=== PATIENT | female | born 1960 | race Caucasian/White ===

== ENCOUNTER → 2017-01-04 | Outpatient (CLI) | payer MEDICAID ==
[~2017-01-04] MED LIST: BPR150TCR; BUPR300T; CALC1TAB88; LEVO750T6; LRT10T
== END ==
LOC: CARD 12:56
PROVIDERS: ATTEND Family Medicine
DX: R60.0 Localized edema (principal); I10 Essential (primary) hypertension; S81.801D Unspecified open wound, right lower leg, subsequent encounter

== ENCOUNTER → 2018-10-18 | Outpatient (CLI) | payer MEDICAID ==
--- NOTE | 2018-10-21 08:26 | Diagnostic Imaging Report ---
Indication: Fall, pain to the right toes. Time of exam: 11:55 AM Multiple views right toes were obtained. There is amputation of the fifth toe with the exception of the most proximal aspect of the proximal phalanx. Resection margin is smooth. First through fourth toes appear to be intact. No fractures are seen. Visualized distal metatarsals are intact. Impression: Amputation of the fifth toe. No acute bony abnormality is detected. Dictated by: Dictated on workstation # [id number]
--- NOTE | 2018-10-21 11:38 | Diagnostic Imaging Report ---
EXAMINATION: Right foot, three views; right ankle, three views. INDICATION: Right foot and ankle pain after fall. COMPARISON: Right foot radiograph performed on 12/03/2007. FINDINGS: There is generalized osteopenia of the visualized bones, limiting detailed evaluation. No fracture or acute osseous abnormality is identified. Bony alignment is maintained. Intact ankle mortise, including the medial and lateral clear space. Interval partial amputation of the fifth digit to the level of the metatarsal. A small well-corticated ossific density adjacent to the fifth metatarsal head likely reflects small residual portion of the proximal phalanx. Well-corticated ossific densities adjacent to the distal tibia and fibula likely represent accessory ossicles or sequela of prior trauma. There is diffuse edema in the soft tissues of the ankle and foot. IMPRESSION: 1. No acute fracture or dislocation. 2. Interval partial amputation of the fifth digit. Dictated by: Dictated on workstation # [id number]
== END ==
LOC: RAD 10:44
PROVIDERS: ATTEND Family Medicine
DX: M79.89 Other specified soft tissue disorders (principal); W19.XXXA Unspecified fall, initial encounter; Z89.421 Acquired absence of other right toe(s)
CPT/HCPCS: 73610; 73630; 73660

== ENCOUNTER 2019-12-16 00:23 | Emergency (ER) | payer MEDICAID ==
[~2019-12-16] VITALS: Ht 157 cm; Wt 105.0 kg
--- OUTSIDE RECORDS SUMMARY | 2019-12-16 00:28 | XMS REPORT | Continuity of Care Document ---
Author Organization Unknown Address Unknown Phone Unavailable Allergies Active Description Code Type Severity Reaction Onset Reported/Identified Relationship to Patient Clinical Status Yes PENICILLIN G POTASSIUM PENICILLIN G POTASSI MILD Yes PENICILLIN G POTASSIUM MILD DERMATOLOGICAL - LAMONT Yes PENICILLIN G POTASSIUM MILD MILD Yes VANCOMYCIN MODERATE DERMATOLOGICAL - HIV Yes VANCOMYCIN MODERATE MODERATE Yes Penicillins [id number] Drug Aller gy Mild N/A 10/03/2008 Medications Medication Packaging Start Date St op Date Route Dosage Sig SMZ/TMP DS TAB (SEPTRA DS) (Bactrim DS) TAB 07/08/2016 07/08/2016 ONCE&1324 POLY/BACI/NEOM OINT OINT 0 (NEOSPORIN) tess 07/09/2016 07/09/2016 ONCE&1226 Normal SALINE 0.9 % (NS 100cc) (plain bag) ml 02/17/2018 02/23/2018 Daily&1700 CLOTRIMAZOLE CREAM CRM 1 % (LOTRIMIN CREAM ) tess 02/18/2018 02/24/2018 BID&0800,2000 POLY/BACI/NEOM OINT OINT (NEOSPORIN) tess 02/18/2018 02/24/2018 BID&0800,2000 CALMOSEPTINE OINT TUBE (RISAMINE OINT) tess 02/18/2018 02/25/2018 PRN Q2H ACETAMINOPHEN ORAL TABLET 325mg(Tylenol) MG 02/18/2018 03/20/2018 PRN Q6H Sore Throat (phenol) spray (Chloraseptic) SPRAY 02/18/2018 02/28/2018 PRN Q6H CHLORASEPTIC/HALLS PRIYA/DROP (SORETHROAT PRIYA/COUGH DROP) LOZENGE 02/18/2018 02/28/2018 PRN Q2H DIPHENHYDRAMINE CAP 25 MG (BENADRYL) MG 02/18/2018 02/25/2018 PRN Q6H ONDANSETRON 8 MG Oral DissolveTab (ZOFRAN) MG 02/18/2018 03/20/2018 PRN Q6H DIPHENHYDRAMINE CAP 25 MG (BENADRYL) MG 02/18/2018 02/18/2018 PRN ONCE LOPERAMIDE CAP 2 MG (IMMODIUM) MG 02/18/2018 02/18/2018 PRN ONCE HYDROCORTISONE CREAM CRM 1 % (HYTONE CREAM ) tess 02/18/2018 02/18/2018 PRN ONCE Sore Throat (phenol) spray (Chloraseptic) SPRAY 02/18/2018 02/18/2018 PRN ONCE CHLORASEPTIC/HALLS PRIYA/DROP (SORETHROAT PRIYA/COUGH DROP) LOZENGE 02/18/2018 02/18/2018 PRN ONCE GUAIFENESIN - DM LIQ (ROBITUSSIN DM) ml 02/18/2018 02/18/2018 PRN ONCE NAPROXEN TAB 500 MG (NAPROSYN) MG 02/18/2018 02/18/2018 PRN ONCE Nystatin top powder (Mycostatin) APPLICATION 02/18/2018 02/18/2018 ONCE&0900 CYCLOBENZAPRINE TAB 10 MG (FLEXERIL) MG 02/18/2018 02/18/2018 PRN ONCE DICYCLOMINE TAB 20 MG (BENTYL) MG 02/18/2018 02/18/2018 ONCE&0800,1400,2000 MILK OF BERE LIQ ml 02/18/2018 02/18/2018 PRN ONCE ACETAMINOPHEN ORAL TABLET 325mg(Tylenol) MG 02/18/2018 02/18/2018 PRN ONCE LOPERAMIDE CAP 2 MG (IMMODIUM) MG 02/18/2018 02/18/2018 PRN ONCE POLY/BACI/NEOMY 1APP OINT (NEOSPORIN) tess 02/18/2018 02/18/2018 PRN ONCE CALCIUM CARBONATE TAB 500 MG (TUMS) MG 02/18/2018 02/18/2018 PRN ONCE ONDANSETRON 8 MG Oral DissolveTab (ZOFRAN) MG 02/18/2018 02/18/2018 PRN ONCE BENZONATATE CAP 100 MG (TESSALON) MG 02/18/2018 02/18/2018 PRN ONCE LEVOFLOXACIN PREMIX IV BAG I NJ 500 MG/100CC (LEVAQUIN IV PREMIX 100CC BAG) MG 02/18/2018 02/25/20 18 Daily&13 00 BENZONATATE CAP 100 MG (TESSALON) MG 02/18/2018 02/25/2018 PRN Q8H CYCLOBENZAPRINE TAB 10 MG (FLEXERIL) MG 02/18/2018 02/25/2018 PRN Q8H HYDROCORTISONE CREAM CRM 1 % (HYTONE CREAM ) tess 02/18/2018 02/28/2018 PRN Q8H CALCIUM CARBONATE TAB 500 MG (TUMS) MG 02/18/2018 02/25/2018 PRN Q4H DICYCLOMINE TAB 20 MG (BENTYL) MG 02/18/2018 02/25/2018 TID&0800,1400,2000 NORMAL SALINE 250CC IV BAG I NJ 0.9 % (NS 250CC IV BAG) ml 02/18/2018 02/25/2018 Q12H&0200,1400 GUAIFENESIN - DM LIQ (ROBITUSSIN DM) ml 02/18/2018 02/25/2018 PRN Q4H DIPHENHYDRAMINE CAP 50 MG (BENADRYL) MG 02/18/2018 02/18/2018 PRN ONCE NORMAL SALINE 250CC IV BAG I NJ 0.9 % (NS 250CC IV BAG) ml 02/18/2018 02/25/2018 Q12H&0400,1600 Normal SALINE 0.9 % (NS 100cc) (plain bag) ml 02/18/2018 02/24/2018 Daily&1700 NAPROXEN TAB 500 MG (NAPROSYN) MG 02/18/2018 02/25/2018 PRN Q12H POLY/BACI/NEOMY 1APP OINT (NEOSPORIN) tess 02/18/2018 02/25/2018 PRN Q12H LEVOFLOXACIN PREMIX IV BAG I NJ 500 MG/100CC (LEVAQUIN IV PREMIX 100CC BAG) MG 02/18/2018 02/25/20 18 Daily&18 00 MILK OF MAGNESIA LIQ ml 02/18/2018 03/20/2018 PRN Q12H CLOTRIMAZOLE CREAM CRM 1 % (LOTRIMIN CREAM ) tess 02/18/2018 02/25/2018 BID&0800,2000 BUPROPION SR TAB 150 MG (WELLBUTRIN SR) MG 02/19/2018 02/25/2018 QAM&0800 LORATADINE TAB 10 MG (CLARITIN) MG 02/19/2018 02/25/2018 Daily&0900 TRIAMTERENE/HCTZ 37.5/25 TAB 37.5 MG-25MG (MAXZIDE-25) cap 02/19/2018 02/25/2018 Daily&0900 LOPERAMIDE CAP 2 MG (IMMODIUM) MG 02/19/2018 02/26/2018 PRN Daily Nystatin top powder (Mycostatin) APPLICATION 02/19/2018 03/04/2018 Daily&0900 PANTOPRAZOLE TAB 40 MG (PROTONIX) MG 02/19/2018 02/25/2018 Daily&0900 VITAMIN D-3 TAB 1000 UNITS (VITAMIN D-3) UNITS 02/19/2018 02/25/2018 Daily&0900 CALCIUM 600MG W VIT D TAB 60 0 MG (OSCAL/W VIT D) MG 02/19/2018 02/25/2018 Daily&0900 IBUPROFEN TAB 800 MG (MOTRIN) MG 02/20/2018 02/27/2018 PRN Q8H LEVOFLOXACIN TAB 500 MG (LEVAQUIN) MG 02/20/2018 02/20/2018 ONCE&1834 Doxycycline hyclate 100mg capsule (Vibramy hussein) MG 02/21/2018 03/02/2018 BID&0800,2000 LEVOFLOXACIN TAB 500 MG (LEVAQUIN) MG 02/21/2018 03/02/2018 Daily&0900 Doxycycline hyclate 100mg capsule (Vibramy hussein) MG 03/03/2018 03/12/2018 BID&0800,2000 Problems Date Dx Coded Attending Type Code Diagnosis Diagnosed By 10/01/2015 SURESH BARON MD Ot B35 .3 [facility] PEDIS 10/01/2015 SURESH BARON MD Ot E16 .1 OTHER HYPOGLYCEMIA 10/01/2015 SURESH BARON MD Ot 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 10/01/2015 SURESH BARON MD Ot L97.511 NON-PRS CHRONIC ULCER OTH PRT R FOOT SOOD 10/07/2015 SURESH BARON MD Ot B35 .3 TINEA PEDIS 10/07/2015 SURESH BARON MD Ot E16 .1 OTHER HYPOGLYCEMIA 10/07/2015 SURESH BARON MD Ot 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 10/07/2015 SURESH BARON MD Ot L97.511 NON-PRS CHRONIC ULCER OTH PRT R FOOT SOOD 04/19/2016 DEVONTE MCCABE, TAE L Ot L81.9 DISORDER OF PIGMENTATION, UNSPECIFIED 04/19/2016 DEVONTE MCCABE, TAE L Ot R20.9 UNSPECIFIED DISTURBANCES OF SKIN SENSATI 04/20/2016 DEVONTE MCCABE, TAE L Ot L81.9 DISORDER OF PIGMENTATION, UNSPECIFIED 04/20/2016 DEVONTE MCCABE, TAE L Ot R20.9 UNSPECIFIED DISTURBANCES OF SKIN SENSATI 05/03/2016 DEVONTE MCCABE, TAE L Ot L81.9 DISORDER OF PIGMENTATION, UNSPECIFIED 05/03/2016 DEVONTE MCCABE, TAE L Ot R20.9 UNSPECIFIED DISTURBANCES OF SKIN SENSATI 07/08/2016 Tyesha Jefferson W 780.60 FEVER, UNSPECIFIED 07/08/2016 Tyesha Jefferson W R50.9 FEVER, UNSPECIFIED 07/08/2016 Devyn Galvez W I87.2 VENOUS INSUFFICIENCY (CHRONIC) (PERIPHERAL) 07/08/2016 Devyn Galvez W I87.2 VENOUS INSUFFICIENCY (CHRONIC) (PERIPHERAL) 07/08/2016 BrownDevyn W I87.2 VENOUS INSUFFICIENCY (CHRONIC) (PERIPHERAL) 07/08/2016 BrownDevyn W I87.2 VENOUS INSUFFICIENCY (CHRONIC) (PERIPHERAL) 07/08/2016 BrownDevyn W I87.2 VENOUS INSUFFICIENCY (CHRONIC) (PERIPHERAL) 07/08/2016 BrownDevyn W I87.2 VENOUS INSUFFICIENCY (CHRONIC) (PERIPHERAL) 07/08/2016 Devyn Galvez W I87.2 VENOUS INSUFFICIENCY (CHRONIC) (PERIPHERAL) 07/08/2016 BrownDevyn W I87.2 VENOUS INSUFFICIENCY (CHRONIC) (PERIPHERAL) 07/08/2016 BrownDevyn W I87.2 VENOUS INSUFFICIENCY (CHRONIC) (PERIPHERAL) 07/08/2016 BrownDevyn W I87.2 VENOUS INSUFFICIENCY (CHRONIC) (PERIPHERAL) 07/08/2016 BrownDevyn W I87.2 VENOUS INSUFFICIENCY (CHRONIC) (PERIPHERAL) 07/08/2016 BrownDevyn W I87.2 VENOUS INSUFFICIENCY (CHRONIC) (PERIPHERAL) 07/08/2016 Tyesha Jefferson W 459.81 VENOUS (PERIPHERAL) INSUFFICIENCY, UNSPECIFIED 07/08/2016 Tyesha Jefferson W 682.3 CELLULITIS AND ABSCESS OF UPPER ARM AND FOREARM 07/08/2016 Tyesha Jefferson A 682.6 CELLULITIS AND ABSCESS OF LEG, EXCEPT FOOT 07/08/2016 Tyesha Jefferson Mackenzie I87.2 VENOUS INSUFFICIENCY (CHRONIC) (PERIPHERAL) 07/08/2016 Tyesha Jeffreson A L03.115 CELLULITIS OF RIGHT LOWER LIMB 07/08/2016 Tyesha Jefferson W L03.119 CELLULITIS OF UNSPECIFIED PART OF LIMB 07/09/2016 Tyesha Jefferson 682.6 CELLULITIS AND ABSCESS OF LEG, EXCEPT FOOT 07/09/2016 Tyesha Jefferson A 893.1 OPEN WOUND OF TOE(S), COMPLICATED 07/09/2016 Tyesha Jefferson W L03.115 CELLULITIS OF RIGHT LOWER LIMB 07/09/2016 Tyesha Jefferson Luiza S91.114 A LAC W/O FB OF RIGHT LESSER TOE(S) W/O DAMAGE TO NAIL, INIT 01/02/2017 TAE WHITNEY MD Ot L81.9 DISORDER OF PIGMENTATION, UNSPECIFIED 01/02/2017 TAE WHITNEY MD Ot R20.9 UNSPECIFIED DISTURBANCES OF SKIN SENSATI 01/04/2017 TAE WHITNEY MD Ot L81.9 DISORDER OF PIGMENTATION, UNSPECIFIED 01/04/2017 TAE WHITNEY MD Ot R20.9 UNSPECIFIED DISTURBANCES OF SKIN SENSATI 05/02/2017 A 789.00 ABD OMINAL PAIN, UNSPECIFIED SITE 05/02/2017 A R10.10 UPP ER ABDOMINAL PAIN, UNSPECIFIED 05/03/2017 TAE WHITNEY A 789.00 ABDOMINAL PAIN, UNSPECIFIED SITE 05/03/2017 TAE WHITNEY A R10.10 UPPER ABDOMINAL PAIN, UNSPECIFIED 05/03/2017 TAE WHITNEY A 789.00 ABDOMINAL PAIN, UNSPECIFIED SITE 05/03/2017 TAE WHITNEY R10.10 UPPER ABDOMINAL PAIN, UNSPECIFIED 05/03/2017 TAE WHITNEY A 789.00 ABDOMINAL PAIN, UNSPECIFIED SITE 05/03/2017 TAE WHITNEY R10.10 UPPER ABDOMINAL PAIN, UNSPECIFIED 01/17/2018 TAE WHITNEY MD Ot K82.9 DISEASE OF GALLBLADDER, UNSPECIFIED 01/17/2018 WHITNEY MD, TAE L Ot R10.84 GENERALIZED ABDOMINAL PAIN 01/17/2018 DEVONTE MCCABE, TAE L Ot R14.0 ABDOMINAL DISTENSION (GASEOUS) 01/17/2018 DEVONTE MCCABE, TAE L Ot R19.7 DIARRHEA, UNSPECIFIED 01/17/2018 DEVONTE MCCABE, TAE L Ot Z12.31 ENCNTR SCREEN MAMMOGRAM FOR MALIGNANT NE 01/30/2018 DEVONTE MCCABE, TAE L Ot K82.9 DISEASE OF GALLBLADDER, UNSPECIFIED 01/30/2018 DEVONTE MCCABE, TAE L Ot R10.84 GENERALIZED ABDOMINAL PAIN 01/30/2018 DEVONTE MCCABE, TAE L Ot R14.0 ABDOMINAL DISTENSION (GASEOUS) 01/30/2018 DEVONTE MCCABE, TAE L Ot R19.7 DIARRHEA, UNSPECIFIED 01/30/2018 LORENA WHITNEY MDHEL L Ot Z12.31 ENCNTR SCREEN MAMMOGRAM FOR MALIGNANT NE 02/18/2018 TAE HWITNEY A 682.6 CELLULITIS AND ABSCESS OF LEG, EXCEPT FOOT 02/18/2018 TAE WHITNEY A L03.119 CELLULITIS OF UNSPECIFIED PART OF LIMB 02/18/2018 TAE WHITNEY A 682.6 CELLULITIS AND ABSCESS OF LEG, EXCEPT FOOT 02/18/2018 TAE WHITNEY W 707.23 PRESSURE ULCER STAGE III 02/18/2018 TAE WHITNEY A L03.119 CELLULITIS OF UNSPECIFIED PART OF LIMB 02/18/2018 TAE WHITNEY W L89.93 PRESSURE ULCER OF UNSPECIFIED SITE, STAGE 3 02/18/2018 TAE WHITNEY W 110.5 DERMATOPHYTOSIS OF THE BODY 02/18/2018 TAE WHITNEY W 457.1 OTHER LYMPHEDEMA 02/18/2018 TAE WHITNEY A 682.6 CELLULITIS AND ABSCESS OF LEG, EXCEPT FOOT 02/18/2018 LORENA WHITNEYHEL W 707.23 PRESSURE ULCER STAGE III 02/18/2018 TAE WHITNEY W B35.4 TINEA CORPORIS 02/18/2018 TAE WHITNEY I89.0 LYMPHEDEMA, NOT ELSEWHERE CLASSIFIED 02/18/2018 TAE WHITNEY A L03.119 CELLULITIS OF UNSPECIFIED PART OF LIMB 02/18/2018 TAE WHITNEY W L89.93 PRESSURE ULCER OF UNSPECIFIED SITE, STAGE 3 02/18/2018 WHITNEY, TAE W 110.5 DERMATOPHYTOSIS OF THE BODY 02/18/2018 WHITNEY TAE W 457.1 OTHER LYMPHEDEMA 02/18/2018 WHITNEY, TAE A 682.6 CELLULITIS AND ABSCESS OF LEG, EXCEPT FOOT 02/18/2018 WHITNEY, TAE W 707.23 PRESSURE ULCER STAGE III 02/18/2018 WHITNEY, TAE W B35.4 TINEA CORPORIS 02/18/2018 WHITNEY, TAE W I89.0 LYMPHEDEMA, NOT ELSEWHERE CLASSIFIED 02/18/2018 WHITNEY, TAE A L03.119 CELLULITIS OF UNSPECIFIED PART OF LIMB 02/18/2018 WHITNEY, TAE W L89.93 PRESSURE ULCER OF UNSPECIFIED SITE, STAGE 3 02/18/2018 WHITNEY, TAE W 110.5 DERMATOPHYTOSIS OF THE BODY 02/18/2018 WHITNEY, TAE W 317 MILD INTELLECTUAL DISABILITIES 02/18/2018 WHITNEY, TAE W 457.1 OTHER LYMPHEDEMA 02/18/2018 WHITNEY TAE A 682.6 CELLULITIS AND ABSCESS OF LEG, EXCEPT FOOT 02/18/2018 WHITNEY, TAE W 707.23 PRESSURE ULCER STAGE III 02/18/2018 WHITNEY, TAE W B35.4 TINEA CORPORIS 02/18/2018 WHITNEY, TAE W F70 MILD INTELLECTUAL DISABILITIES 02/18/2018 WHITNEY TAE W I89.0 LYMPHEDEMA, NOT ELSEWHERE CLASSIFIED 02/18/2018 WHITNEY, TAE A L03.119 CELLULITIS OF UNSPECIFIED PART OF LIMB 02/18/2018 WHITNEY, TAE W L89.93 PRESSURE ULCER OF UNSPECIFIED SITE, STAGE 3 02/18/2018 WHITNEY, TAE W 110.5 DERMATOPHYTOSIS OF THE BODY 02/18/2018 WHITNEY, TAE W 317 02/18/2018 WHITNEY, TAE W 401.9 02/18/2018 WHITNEY, TAE W 457.1 OTHER LYMPHEDEMA 02/18/2018 WHITNEY, TAE A 682.6 CELLULITIS AND ABSCESS OF LEG, EXCEPT FOOT 02/18/2018 WHITNEY, TAE W 707.23 PRESSURE ULCER STAGE III 02/18/2018 WHITNEY, TAE W B35.4 TINEA CORPORIS 02/18/2018 WHITNEY, TAE W F70 MILD INTELLECTUAL DISABILITIES 02/18/2018 LORENA WHITNEYHEL W I10 ESSENTIAL (PRIMARY) HYPERTENSION 02/18/2018 TAE WHITNEY W I89.0 LYMPHEDEMA, NOT ELSEWHERE CLASSIFIED 02/18/2018 DEVONTE TAE A L03.119 CELLULITIS OF UNSPECIFIED PART OF LIMB 02/18/2018 TAE WHITNEY W L89.93 PRESSURE ULCER OF UNSPECIFIED SITE, STAGE 3 02/18/2018 TAE WHITNEY W 110.5 DERMATOPHYTOSIS OF THE BODY 02/18/2018 TAE WHITNEY W 317 02/18/2018 WHITNEYLORENA BERMANHEL W 356.9 02/18/2018 WHITNEYLORENA BERMANHEL W 401.9 02/18/2018 LORENA WHITNEYHEL W 457.1 OTHER LYMPHEDEMA 02/18/2018 LORENA WHITNEYHEL A 682.6 CELLULITIS AND ABSCESS OF LEG, EXCEPT FOOT 02/18/2018 TAE WHITNEY W 707.23 PRESSURE ULCER STAGE III 02/18/2018 TAE WHITNEY W B35.4 TINEA CORPORIS 02/18/2018 TAE WHITNEY W F70 MILD INTELLECTUAL DISABILITIES 02/18/2018 TAE WHITNEY W 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 02/18/2018 DEVONTE TAE W I10 ESSENTIAL (PRIMARY) HYPERTENSION 02/18/2018 TAE WHITNEY W I89.0 LYMPHEDEMA, NOT ELSEWHERE CLASSIFIED 02/18/2018 WHITNEY, TAE A L03.119 CELLULITIS OF UNSPECIFIED PART OF LIMB 02/18/2018 WHITNEY, TAE W L89.93 PRESSURE ULCER OF UNSPECIFIED SITE, STAGE 3 02/18/2018 TAE WHITNEY W 110.5 02/18/2018 TAE WHITNEY W 317 02/18/2018 WHITNEYLORENA BERMANHEL W 356.9 02/18/2018 WHITNEY, TAE W 401.9 02/18/2018 WHITNEYLORENA BERMANHEL W 457.1 OTHER LYMPHEDEMA 02/18/2018 LORENA WHITNEYHEL A 682.6 CELLULITIS AND ABSCESS OF LEG, EXCEPT FOOT 02/18/2018 LORENA WHITNEYHEL W 707.23 PRESSURE ULCER STAGE III 02/18/2018 TAE WHITNEY W B35.4 TINEA CORPORIS 02/18/2018 TAE WHITNEY W F70 MILD INTELLECTUAL DISABILITIES 02/18/2018 LORENA WHITNEYHEL W 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 02/18/2018 WHITNEY, TAE W I10 ESSENTIAL (PRIMARY) HYPERTENSION 02/18/2018 WHITNEY TAE W I89.0 LYMPHEDEMA, NOT ELSEWHERE CLASSIFIED 02/18/2018 TAE WHITNEY A L03.119 CELLULITIS OF UNSPECIFIED PART OF LIMB 02/18/2018 WHITNEY, TAE W L89.93 PRESSURE ULCER OF UNSPECIFIED SITE, STAGE 3 02/21/2018 WHITNEY, TAE W 110.5 02/21/2018 WHITNEY, TAE W 317 02/21/2018 WHITNEY, TAE W 356.9 02/21/2018 WHITNEY, TAE W 357.9 02/21/2018 WHITNEY, TAE W 401.9 02/21/2018 WHITNEY, TAE W 457.1 OTHER LYMPHEDEMA 02/21/2018 LORENA WHITNEYHEL A 682.6 CELLULITIS AND ABSCESS OF LEG, EXCEPT FOOT 02/21/2018 WHITNEY, TAE W 707.05 02/21/2018 WHITNEY, TAE W 707.09 02/21/2018 WHITNEY, TAE W 707.23 PRESSURE ULCER STAGE III 02/21/2018 WHITNEY, TAE W 708.0 02/21/2018 WHITNEY, TAE W 995.29 02/21/2018 WHITNEY, TAE W B35.4 TINEA CORPORIS 02/21/2018 DEVONTE TAE W F70 MILD INTELLECTUAL DISABILITIES 02/21/2018 WHITNEY, TAE W G62.9 POLYNEUROPATHY, UNSPECIFIED 02/21/2018 WHITNEY, TAE W 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 02/21/2018 WHITNEY, TAE W I10 ESSENTIAL (PRIMARY) HYPERTENSION 02/21/2018 WHITNEY, TAE W I89.0 LYMPHEDEMA, NOT ELSEWHERE CLASSIFIED 02/21/2018 DEVONTE TAE A L03.115 CELLULITIS OF RIGHT LOWER LIMB 02/21/2018 WHITNEY, TAE A L03.119 CELLULITIS OF UNSPECIFIED PART OF LIMB 02/21/2018 DEVONTE TAE W L50.0 ALLERGIC URTICARIA 02/21/2018 DEVONTE TAE W L89.313 02/21/2018 WHITNEY, TAE W L89.892 02/21/2018 TAE WHITNEY W L89.93 PRESSURE ULCER OF UNSPECIFIED SITE, STAGE 3 02/21/2018 TAE WHITNEY W T36.8X5 A ADVERSE EFFECT OF OTHER SYSTEMIC ANTIBIOTICS, INIT ENCNTR 02/28/2018 W 110.5 DERM ATOPHYTOSIS OF THE BODY 02/28/2018 A 682.6 CELL ULITIS AND ABSCESS OF LEG, EXCEPT FOOT 02/28/2018 W 707.05 PRE SSURE ULCER, BUTTOCK 02/28/2018 W B35.4 GOLDY A CORPORIS 02/28/2018 A L03.119 CE LLULITIS OF UNSPECIFIED PART OF LIMB 02/28/2018 W L89.3 PRES SURE ULCER OF BUTTOCK 03/12/2018 A 707.22 PRE SSURE ULCER STAGE II 03/12/2018 W 782.3 EDEMA 03/12/2018 A L89.92 PRE SSURE ULCER OF UNSPECIFIED SITE, STAGE 2 03/12/2018 W R60.0 LOCA LIZED EDEMA 03/26/2018 W 707.22 PRE SSURE ULCER STAGE II 03/26/2018 A 782.3 EDEMA 03/26/2018 W L89.92 PRE SSURE ULCER OF UNSPECIFIED SITE, STAGE 2 03/26/2018 A R60.0 LOCA LIZED EDEMA 04/09/2018 W 707.00 PRE SSURE ULCER, UNSPECIFIED SITE 04/09/2018 W 782.3 EDEMA 04/09/2018 W L89.92 PRE SSURE ULCER OF UNSPECIFIED SITE, STAGE 2 04/09/2018 W R60.0 LOCA LIZED EDEMA 04/24/2018 W 707.22 PRE SSURE ULCER STAGE II 04/24/2018 A 782.3 EDEMA 04/24/2018 W L89.92 PRE SSURE ULCER OF UNSPECIFIED SITE, STAGE 2 04/24/2018 A R60.0 LOCA LIZED EDEMA 07/24/2018 W 250.00 FLORIAN BETES MELLITUS WITHOUT MENTION OF COMPLICATION, TYPE II OR UNSPECIFIED TYPE, NOT STATED UNCONTROLLED 07/24/2018 W 401.0 ELMER GNANT ESSENTIAL HYPERTENSION 07/24/2018 W 780.99 OTH ER GENERAL SYMPTOMS 07/24/2018 W E11.9 TYPE 2 DIABETES MELLITUS WITHOUT COMPLICATIONS 07/24/2018 W I10 ESSENT IAL (PRIMARY) HYPERTENSION 08/12/2018 W 682.9 CELL ULITIS AND ABSCESS OF UNSPECIFIED SITES 08/12/2018 W L03.90 TOD LULITIS, UNSPECIFIED 10/15/2018 W 959.7 OTHE R AND UNSPECIFIED INJURY TO KNEE, LEG, ANKLE, AND FOOT 10/15/2018 W E888.9 UNS PECIFIED FALL 10/15/2018 W S99.921 UN SPECIFIED INJURY OF RIGHT FOOT 10/28/2018 W 250.00 FLORIAN BETES MELLITUS WITHOUT MENTION OF COMPLICATION, TYPE II OR UNSPECIFIED TYPE, NOT STATED UNCONTROLLED 10/28/2018 W 401.9 UNSP ECIFIED ESSENTIAL HYPERTENSION 10/28/2018 W 530.81 ESO PHAGEAL REFLUX 10/28/2018 W E11.9 TYPE 2 DIABETES MELLITUS WITHOUT COMPLICATIONS 10/28/2018 W I10 ESSENT IAL (PRIMARY) HYPERTENSION 10/28/2018 W K21.0 TIFFANY RO-ESOPHAGEAL REFLUX DISEASE WITH ESOPHAGITIS 11/03/2018 TAE WHITNEY MD, Ot M79.89 OTHER SPECIFIED SOFT TISSUE DISORDERS 11/03/2018 TAE WHITNEY MD Ot W19.XXXA UNSPECIFIED FALL, INITIAL ENCOUNTER 11/03/2018 TAE WHITNEY MD, Ot Z89.421 ACQUIRED ABSENCE OF OTHER RIGHT TOE(S) 11/13/2018 TAE WHITNEY MD, Ot M79.89 OTHER SPECIFIED SOFT TISSUE DISORDERS 11/13/2018 TAE WHITNEY MD, Ot W19.XXXA UNSPECIFIED FALL, INITIAL ENCOUNTER 11/13/2018 TAE WHITNEY MD, Ot Z89.421 ACQUIRED ABSENCE OF OTHER RIGHT TOE(S) 12/26/2018 W 707.0 PRES SURE ULCER 12/26/2018 W L89.90 PRE SSURE ULCER OF UNSPECIFIED SITE, UNSPECIFIED STAGE 01/29/2019 TAE WHITNEY V70.0 ROUTINE GENERAL MEDICAL EXAMINATION AT A HEALTH CARE FACILITY 01/29/2019 TAE WHITNEY Z00.00 ENCOUNTER FOR GENERAL ADULT MEDICAL EXAMINATION WITHOUT ABNORMAL FINDINGS 01/29/2019 TAE WHITNEY V70.0 ROUTINE GENERAL MEDICAL EXAMINATION AT A HEALTH CARE FACILITY 01/29/2019 TAE WHITNEY Z00.00 ENCOUNTER FOR GENERAL ADULT MEDICAL EXAMINATION WITHOUT ABNORMAL FINDINGS 01/29/2019 TAE WHITNEY V70.0 ROUTINE GENERAL MEDICAL EXAMINATION AT A HEALTH CARE FACILITY 01/29/2019 TAE WHITNEY Z00.00 ENCOUNTER FOR GENERAL ADULT MEDICAL EXAMINATION WITHOUT ABNORMAL FINDINGS 01/29/2019 TAE WHITNEY W 250.00 DIABETES MELLITUS WITHOUT MENTION OF COMPLICATION, TYPE II OR UNSPECIFIED TYPE, NOT STATED UNCONTROLLED 01/29/2019 TAE WHITNEY E11.9 TYPE 2 DIABETES MELLITUS WITHOUT COMPLICATIONS 01/29/2019 TAE WHITNEY V70.0 ROUTINE GENERAL MEDICAL EXAMINATION AT A HEALTH CARE FACILITY 01/29/2019 TAE WHITNEY Z00.00 ENCOUNTER FOR GENERAL ADULT MEDICAL EXAMINATION WITHOUT ABNORMAL FINDINGS 01/29/2019 TAE WHITNEY W 250.00 DIABETES MELLITUS WITHOUT MENTION OF COMPLICATION, TYPE II OR UNSPECIFIED TYPE, NOT STATED UNCONTROLLED 01/29/2019 TAE WHITNEY E11.9 TYPE 2 DIABETES MELLITUS WITHOUT COMPLICATIONS 01/29/2019 TAE WHITNEY V70.0 ROUTINE GENERAL MEDICAL EXAMINATION AT A HEALTH CARE FACILITY 01/29/2019 TAE WHITNEY Z00.00 ENCOUNTER FOR GENERAL ADULT MEDICAL EXAMINATION WITHOUT ABNORMAL FINDINGS 01/29/2019 TAE WHITNEY 250.00 DIABETES MELLITUS WITHOUT MENTION OF COMPLICATION, TYPE II OR UNSPECIFIED TYPE, NOT STATED UNCONTROLLED 01/29/2019 TAE WHITNEY W 401.0 MALIGNANT ESSENTIAL HYPERTENSION 01/29/2019 TAE WHITNEY E11.9 TYPE 2 DIABETES MELLITUS WITHOUT COMPLICATIONS 01/29/2019 TAE WHITNEY W I10 ESSENTIAL (PRIMARY) HYPERTENSION 01/29/2019 TAE WHITNEY V70.0 ROUTINE GENERAL MEDICAL EXAMINATION AT A HEALTH CARE FACILITY 01/29/2019 TAE WHITNEY Z00.00 ENCOUNTER FOR GENERAL ADULT MEDICAL EXAMINATION WITHOUT ABNORMAL FINDINGS 01/29/2019 TAE WHITNEY 250.00 DIABETES MELLITUS WITHOUT MENTION OF COMPLICATION, TYPE II OR UNSPECIFIED TYPE, NOT STATED UNCONTROLLED 01/29/2019 TAE WHITNEY W 401.0 MALIGNANT ESSENTIAL HYPERTENSION 01/29/2019 TAE WHITNEY E11.9 TYPE 2 DIABETES MELLITUS WITHOUT COMPLICATIONS 01/29/2019 TAE WHITNEY I10 ESSENTIAL (PRIMARY) HYPERTENSION 01/29/2019 TAE WHITNEY V70.0 ROUTINE GENERAL MEDICAL EXAMINATION AT A HEALTH CARE FACILITY 01/29/2019 TAE WHITNEY Z00.00 ENCOUNTER FOR GENERAL ADULT MEDICAL EXAMINATION WITHOUT ABNORMAL FINDINGS 01/29/2019 WHITNEY, TAE W 250.00 DIABETES MELLITUS WITHOUT MENTION OF COMPLICATION, TYPE II OR UNSPECIFIED TYPE, NOT STATED UNCONTROLLED 01/29/2019 WHITNEY, TAE W 272.4 OTHER AND UNSPECIFIED HYPERLIPIDEMIA 01/29/2019 WHITNEY TAE W 401.0 MALIGNANT ESSENTIAL HYPERTENSION 01/29/2019 LORENA WHITNYEHEL W E11.9 TYPE 2 DIABETES MELLITUS WITHOUT COMPLICATIONS 01/29/2019 WHITNEY, TAE W E78.5 HYPERLIPIDEMIA, UNSPECIFIED 01/29/2019 LORE[place] WHITNEYHEL W I10 ESSENTIAL (PRIMARY) HYPERTENSION 01/29/2019 TAE WHITNEY W V70.0 ROUTINE GENERAL MEDICAL EXAMINATION AT A HEALTH CARE FACILITY 01/29/2019 WHITNEY, TAE W Z00.00 ENCOUNTER FOR GENERAL ADULT MEDICAL EXAMINATION WITHOUT ABNORMAL FINDINGS 01/29/2019 WHITNEY TAE W 250.00 DIABETES MELLITUS WITHOUT MENTION OF COMPLICATION, TYPE II OR UNSPECIFIED TYPE, NOT STATED UNCONTROLLED 01/29/2019 DEVONTE TAE W 272.4 OTHER AND UNSPECIFIED HYPERLIPIDEMIA 01/29/2019 WHITNEY, TAE W 401.0 MALIGNANT ESSENTIAL HYPERTENSION 01/29/2019 WHITNEY TAE W E11.9 TYPE 2 DIABETES MELLITUS WITHOUT COMPLICATIONS 01/29/2019 WHITNEY TAE W E78.5 HYPERLIPIDEMIA, UNSPECIFIED 01/29/2019 LORE[place] WHITNEYHEL W I10 ESSENTIAL (PRIMARY) HYPERTENSION 01/29/2019 WHITNEY TAE W V70.0 ROUTINE GENERAL MEDICAL EXAMINATION AT A HEALTH CARE FACILITY 01/29/2019 WHITNEY TAE W Z00.00 ENCOUNTER FOR GENERAL ADULT MEDICAL EXAMINATION WITHOUT ABNORMAL FINDINGS 01/29/2019 WHITNEY, TAE W 250.00 DIABETES MELLITUS WITHOUT MENTION OF COMPLICATION, TYPE II OR UNSPECIFIED TYPE, NOT STATED UNCONTROLLED 01/29/2019 WHITNEY, TAE W 272.4 OTHER AND UNSPECIFIED HYPERLIPIDEMIA 01/29/2019 WHITNEY, TAE W 401.0 MALIGNANT ESSENTIAL HYPERTENSION 01/29/2019 WHITNEY, TAE W E11.9 TYPE 2 DIABETES MELLITUS WITHOUT COMPLICATIONS 01/29/2019 WHITNEY, TAE W E78.5 HYPERLIPIDEMIA, UNSPECIFIED 01/29/2019 WHITNEY TAE W I10 ESSENTIAL (PRIMARY) HYPERTENSION 01/29/2019 DEVONTE TAE W V70.0 ROUTINE GENERAL MEDICAL EXAMINATION AT A HEALTH CARE FACILITY 01/29/2019 WHITNEY, TAE W Z00.00 ENCOUNTER FOR GENERAL ADULT MEDICAL EXAMINATION WITHOUT ABNORMAL FINDINGS 04/23/2019 Brown, Devyn W F33.1 MAJOR DEPRESSIVE DISORDER, RECURRENT, MODERATE 04/23/2019 Brown, Devyn W F33.1 MAJOR DEPRESSIVE DISORDER, RECURRENT, MODERATE 04/23/2019 Brown, Devyn W F33.1 MAJOR DEPRESSIVE DISORDER, RECURRENT, MODERATE 04/23/2019 Brown, Devyn W F33.1 MAJOR DEPRESSIVE DISORDER, RECURRENT, MODERATE 04/23/2019 Brown, Devyn W F33.1 MAJOR DEPRESSIVE DISORDER, RECURRENT, MODERATE 04/23/2019 Brown, Devyn W F33.1 MAJOR DEPRESSIVE DISORDER, RECURRENT, MODERATE 04/23/2019 Brown, Devyn W F33.1 MAJOR DEPRESSIVE DISORDER, RECURRENT, MODERATE 04/23/2019 Brown, Devyn W F33.1 MAJOR DEPRESSIVE DISORDER, RECURRENT, MODERATE 04/23/2019 Brown, Devyn W F33.1 MAJOR DEPRESSIVE DISORDER, RECURRENT, MODERATE 04/23/2019 Brown, Devyn W F33.1 MAJOR DEPRESSIVE DISORDER, RECURRENT, MODERATE 04/23/2019 Brown, Devyn W F33.1 MAJOR DEPRESSIVE DISORDER, RECURRENT, MODERATE 04/23/2019 Brown, Devyn W F33.1 MAJOR DEPRESSIVE DISORDER, RECURRENT, MODERATE 07/02/2019 Brown, Devyn W B35.4 TINEA CORPORIS 07/02/2019 Brown Devyn W E11.9 TYPE 2 DIABETES MELLITUS WITHOUT COMPLICATIONS 07/02/2019 Brown Devyn W E78.5 HYPERLIPIDEMIA, UNSPECIFIED 07/02/2019 Lenny, Devyn W F70 MILD INTELLECTUAL DISABILITIES 07/02/2019 Lenny Devyn W 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 07/02/2019 Lenny Devyn W I10 ESSENTIAL (PRIMARY) HYPERTENSION 07/02/2019 Lenny Devyn W I89.0 LYMPHEDEMA, NOT ELSEWHERE CLASSIFIED 07/02/2019 Brown Devyn W K21.0 GASTRO-ESOPHAGEAL REFLUX DISEASE WITH ESOPHAGITIS 07/02/2019 BrownCompaDevyn W L03.115 CELLULITIS OF RIGHT LOWER LIMB 07/02/2019 Brown Devyn W L03.119 CELLULITIS OF UNSPECIFIED PART OF LIMB 07/02/2019 BrownCompaDevyn W L89.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 PRESSURE ULCER OF OTHER SITE, STAGE 2 07/02/2019 Compa Galvezlas W L89.90 PRESSURE ULCER OF UNSPECIFIED SITE, UNSPECIFIED STAGE 07/02/2019 Lenny Devyn W L89.92 PRESSURE ULCER OF UNSPECIFIED SITE, STAGE 2 07/02/2019 Brown, Devyn W L89.93 PRESSURE ULCER OF UNSPECIFIED SITE, STAGE 3 07/02/2019 Brown Devyn W R10.10 U 07/02/2019 Brown, Devyn W R60.0 LOCALIZED EDEMA 07/02/2019 BrownCompaDevyn W S91.114A LAC W/O FB OF RIGHT LESSER TOE(S) W/O DAMAGE TO NAIL, INIT 07/02/2019 Brown, Devyn W Z00.00 ENCNTR FOR GENERAL ADULT MEDICAL EXAM W/O ABNORMAL FINDINGS 07/09/2019 Lenny Devyn W B35.4 TINEA CORPORIS 07/09/2019 Brown, Devyn W E11.9 TYPE 2 DIABETES MELLITUS WITHOUT COMPLICATIONS 07/09/2019 Brown, Devyn W E78.5 HYPERLIPIDEMIA, UNSPECIFIED 07/09/2019 Lenny Devyn W F70 MILD INTELLECTUAL DISABILITIES 07/09/2019 Lenny Devyn W 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 07/09/2019 Lenny Devyn W I10 ESSENTIAL (PRIMARY) HYPERTENSION 07/09/2019 Lenny Devyn W I89.0 LYMPHEDEMA, NOT ELSEWHERE CLASSIFIED 07/09/2019 Brown Devyn W K21.0 GASTRO-ESOPHAGEAL REFLUX DISEASE WITH ESOPHAGITIS 07/09/2019 Brown Devyn W L03.115 CELLULITIS OF RIGHT LOWER LIMB 07/09/2019 Brown, Devyn W L03.119 CELLULITIS OF UNSPECIFIED PART OF LIMB 07/09/2019 Lenny Devyn W L89.892 PRESSURE ULCER OF OTHER SITE, STAGE 2 07/09/2019 Lenny Devyn W L89.90 PRESSURE ULCER OF UNSPECIFIED SITE, UNSPECIFIED STAGE 07/09/2019 Brown Devyn W L89.92 PRESSURE ULCER OF UNSPECIFIED SITE, STAGE 2 07/09/2019 Brown, Devyn W L89.93 PRESSURE ULCER OF UNSPECIFIED SITE, STAGE 3 07/09/2019 Brown Devyn W R10.10 U 07/09/2019 Brown, Devyn W R60.0 LOCALIZED EDEMA 07/09/2019 Brown Devyn W S91.114A LAC W/O FB OF RIGHT LESSER TOE(S) W/O DAMAGE TO NAIL, INIT 07/09/2019 Lenny Devyn W Z00.00 ENCNTR FOR GENERAL ADULT MEDICAL EXAM W/O ABNORMAL FINDINGS 07/16/2019 Brown Devyn W B35.4 TINEA CORPORIS 07/16/2019 Brown, Devyn W E11.9 TYPE 2 DIABETES MELLITUS WITHOUT COMPLICATIONS 07/16/2019 Brown Devyn W E78.5 HYPERLIPIDEMIA, UNSPECIFIED 07/16/2019 Brown, Devyn W F70 MILD INTELLECTUAL DISABILITIES 07/16/2019 Brown, Devyn W 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 07/16/2019 Brown, Devyn W I10 ESSENTIAL (PRIMARY) HYPERTENSION 07/16/2019 Brown, Devyn W I89.0 LYMPHEDEMA, NOT ELSEWHERE CLASSIFIED 07/16/2019 Brown Devyn W K21.0 GASTRO-ESOPHAGEAL REFLUX DISEASE WITH ESOPHAGITIS 07/16/2019 Brown Devyn W L03.115 CELLULITIS OF RIGHT LOWER LIMB 07/16/2019 Brown, Devyn W L03.119 CELLULITIS OF UNSPECIFIED PART OF LIMB 07/16/2019 Compa Galvezlas W L89.892 PRESSURE ULCER OF OTHER SITE, STAGE 2 07/16/2019 Compa Galvezlas W L89.90 PRESSURE ULCER OF UNSPECIFIED SITE, UNSPECIFIED STAGE 07/16/2019 Brown Devyn W L89.92 PRESSURE ULCER OF UNSPECIFIED SITE, STAGE 2 07/16/2019 BrownCompaDevyn W L89.93 PRESSURE ULCER OF UNSPECIFIED SITE, STAGE 3 07/16/2019 Compa Galvezlas W R10.10 U 07/16/2019 Lenny Devyn W R60.0 LOCALIZED EDEMA 07/16/2019 Brown Devyn W S91.114A LAC W/O FB OF RIGHT LESSER TOE(S) W/O DAMAGE TO NAIL, INIT 07/16/2019 Lenny Devyn W Z00.00 ENCNTR FOR GENERAL ADULT MEDICAL EXAM W/O ABNORMAL FINDINGS 2019 BrownCompaDveyn W B35.4 TINEA CORPORIS 2019 Brown, Devyn W E11.9 TYPE 2 DIABETES MELLITUS WITHOUT COMPLICATIONS 2019 Brown Devyn W E78.5 HYPERLIPIDEMIA, UNSPECIFIED 2019 Brown Devyn W F70 MILD INTELLECTUAL DISABILITIES 2019 Brown, Devyn W 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 2019 Brown Devyn W I10 ESSENTIAL (PRIMARY) HYPERTENSION 2019 Lenny Devyn W I89.0 LYMPHEDEMA, NOT ELSEWHERE CLASSIFIED 2019 Lenny Devyn W K21.0 GASTRO-ESOPHAGEAL REFLUX DISEASE WITH ESOPHAGITIS 2019 Lenny Devyn W L03.115 CELLULITIS OF RIGHT LOWER LIMB 2019 Brown Devyn W L03.119 CELLULITIS OF UNSPECIFIED PART OF LIMB 2019 Lenny Devyn W L89.892 PRESSURE ULCER OF OTHER SITE, STAGE 2 2019 Lenny Devyn W L89.90 PRESSURE ULCER OF UNSPECIFIED SITE, UNSPECIFIED STAGE 2019 Lenny Devyn W L89.92 PRESSURE ULCER OF UNSPECIFIED SITE, STAGE 2 2019 Lenny Devyn W L89.93 PRESSURE ULCER OF UNSPECIFIED SITE, STAGE 3 2019 Lenny Devyn W R10.10 U 2019 Compa Galvezlas W R60.0 LOCALIZED EDEMA 2019 Lenny Devyn W S91.114A LAC W/O FB OF RIGHT LESSER TOE(S) W/O DAMAGE TO NAIL, INIT 2019 Lenny Devyn W Z00.00 ENCNTR FOR GENERAL ADULT MEDICAL EXAM W/O ABNORMAL FINDINGS 09/17/2019 Lenny Devyn W B35.4 TINEA CORPORIS 09/17/2019 Lenny Devyn W E11.9 TYPE 2 DIABETES MELLITUS WITHOUT COMPLICATIONS 09/17/2019 Lenny Devyn W E78.5 HYPERLIPIDEMIA, UNSPECIFIED 09/17/2019 Lenny Devyn W F70 MILD INTELLECTUAL DISABILITIES 09/17/2019 Lenny Devyn W 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 09/17/2019 Lenny Devyn W I10 ESSENTIAL (PRIMARY) HYPERTENSION 09/17/2019 Lenny Devyn W I89.0 LYMPHEDEMA, NOT ELSEWHERE CLASSIFIED 09/17/2019 Lenny Devyn W K21.0 GASTRO-ESOPHAGEAL REFLUX DISEASE WITH ESOPHAGITIS 09/17/2019 Lenny Devyn W L03.115 CELLULITIS OF RIGHT LOWER LIMB 09/17/2019 Lenny Devyn W L03.119 CELLULITIS OF UNSPECIFIED PART OF LIMB 09/17/2019 Lenny Devyn W L89.892 PRESSURE ULCER OF OTHER SITE, STAGE 2 09/17/2019 Lenny Devyn W L89.90 PRESSURE ULCER OF UNSPECIFIED SITE, UNSPECIFIED STAGE 09/17/2019 Brown Devyn W L89.92 PRESSURE ULCER OF UNSPECIFIED SITE, STAGE 2 09/17/2019 Brown, Devyn W L89.93 PRESSURE ULCER OF UNSPECIFIED SITE, STAGE 3 09/17/2019 Brown Devyn W R10.10 U 09/17/2019 Brown Devyn W R60.0 LOCALIZED EDEMA 09/17/2019 BrownCompaDevyn W S91.114A LAC W/O FB OF RIGHT LESSER TOE(S) W/O DAMAGE TO NAIL, INIT 09/17/2019 Brown, Devyn W Z00.00 ENCNTR FOR GENERAL ADULT MEDICAL EXAM W/O ABNORMAL FINDINGS 09/24/2019 Lenny Devyn W B35.4 TINEA CORPORIS 09/24/2019 Brown Devyn W E11.9 TYPE 2 DIABETES MELLITUS WITHOUT COMPLICATIONS 09/24/2019 Lenny, Devyn W E78.5 HYPERLIPIDEMIA, UNSPECIFIED 09/24/2019 Lenny Devyn W F70 MILD INTELLECTUAL DISABILITIES 09/24/2019 Lenny Devyn W 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 09/24/2019 Lenny Devyn W I10 ESSENTIAL (PRIMARY) HYPERTENSION 09/24/2019 Lenny Devyn W I89.0 LYMPHEDEMA, NOT ELSEWHERE CLASSIFIED 09/24/2019 Lenny Devyn W K21.0 GASTRO-ESOPHAGEAL REFLUX DISEASE WITH ESOPHAGITIS 09/24/2019 Brown Devyn W L03.115 CELLULITIS OF RIGHT LOWER LIMB 09/24/2019 Brown Devyn W L03.119 CELLULITIS OF UNSPECIFIED PART OF LIMB 09/24/2019 Lenny Devyn W L89.892 PRESSURE ULCER OF OTHER SITE, STAGE 2 09/24/2019 Lenny Devyn W L89.90 PRESSURE ULCER OF UNSPECIFIED SITE, UNSPECIFIED STAGE 09/24/2019 Brown Devyn W L89.92 PRESSURE ULCER OF UNSPECIFIED SITE, STAGE 2 09/24/2019 Brown Devyn W L89.93 PRESSURE ULCER OF UNSPECIFIED SITE, STAGE 3 09/24/2019 Brown Devyn W R10.10 U 09/24/2019 Brown, Devyn W R60.0 LOCALIZED EDEMA 09/24/2019 Brown Devyn W S91.114A LAC W/O FB OF RIGHT LESSER TOE(S) W/O DAMAGE TO NAIL, INIT 09/24/2019 Brown, Devyn W Z00.00 ENCNTR FOR GENERAL ADULT MEDICAL EXAM W/O ABNORMAL FINDINGS 10/01/2019 BrownCompaDevyn W B35.4 TINEA CORPORIS 10/01/2019 Brown, Devyn W E11.9 TYPE 2 DIABETES MELLITUS WITHOUT COMPLICATIONS 10/01/2019 Brown, Devyn W E78.5 HYPERLIPIDEMIA, UNSPECIFIED 10/01/2019 Brown, Devyn W F70 MILD INTELLECTUAL DISABILITIES 10/01/2019 Brown, Devyn W 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 10/01/2019 Brown, Devyn W I10 ESSENTIAL (PRIMARY) HYPERTENSION 10/01/2019 Brown, Devyn W I89.0 LYMPHEDEMA, NOT ELSEWHERE CLASSIFIED 10/01/2019 Brown, Devyn W K21.0 GASTRO-ESOPHAGEAL REFLUX DISEASE WITH ESOPHAGITIS 10/01/2019 Brown Devyn W L03.115 CELLULITIS OF RIGHT LOWER LIMB 10/01/2019 Brown Devyn W L03.119 CELLULITIS OF UNSPECIFIED PART OF LIMB 10/01/2019 Lenny Devyn W L89.892 PRESSURE ULCER OF OTHER SITE, STAGE 2 10/01/2019 Lenny Devyn W L89.90 PRESSURE ULCER OF UNSPECIFIED SITE, UNSPECIFIED STAGE 10/01/2019 Brown Devyn W L89.92 PRESSURE ULCER OF UNSPECIFIED SITE, STAGE 2 10/01/2019 Lenny Devyn W L89.93 PRESSURE ULCER OF UNSPECIFIED SITE, STAGE 3 10/01/2019 Lenny Devyn W R10.10 U 10/01/2019 Lenny Devyn W R60.0 LOCALIZED EDEMA 10/01/2019 Lenny Devyn W S91.114A LAC W/O FB OF RIGHT LESSER TOE(S) W/O DAMAGE TO NAIL, INIT 10/01/2019 Lenny Devyn W Z00.00 ENCNTR FOR GENERAL ADULT MEDICAL EXAM W/O ABNORMAL FINDINGS 10/08/2019 Lenny Devyn W B35.4 TINEA CORPORIS 10/08/2019 Brown, Devyn W E11.9 TYPE 2 DIABETES MELLITUS WITHOUT COMPLICATIONS 10/08/2019 Brown, Devyn W E78.5 HYPERLIPIDEMIA, UNSPECIFIED 10/08/2019 Brown, Devyn W F70 MILD INTELLECTUAL DISABILITIES 10/08/2019 Brown, Devyn W 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 10/08/2019 Brown, Devyn W I10 ESSENTIAL (PRIMARY) HYPERTENSION 10/08/2019 Lenny Devyn W I89.0 LYMPHEDEMA, NOT ELSEWHERE CLASSIFIED 10/08/2019 Lenny Devyn W K21.0 GASTRO-ESOPHAGEAL REFLUX DISEASE WITH ESOPHAGITIS 10/08/2019 Lenny Devyn W L03.115 CELLULITIS OF RIGHT LOWER LIMB 10/08/2019 Lenny Devyn W L03.119 CELLULITIS OF UNSPECIFIED PART OF LIMB 10/08/2019 Lenny Devyn W L89.892 PRESSURE ULCER OF OTHER SITE, STAGE 2 10/08/2019 Lenny Devyn W L89.90 PRESSURE ULCER OF UNSPECIFIED SITE, UNSPECIFIED STAGE 10/08/2019 Lenny Devyn W L89.92 PRESSURE ULCER OF UNSPECIFIED SITE, STAGE 2 10/08/2019 Lenny Devyn W L89.93 PRESSURE ULCER OF UNSPECIFIED SITE, STAGE 3 10/08/2019 Lenny Devyn W R10.10 U 10/08/2019 Compa Galvezlas W R60.0 LOCALIZED EDEMA 10/08/2019 Lenny Devyn W S91.114A LAC W/O FB OF RIGHT LESSER TOE(S) W/O DAMAGE TO NAIL, INIT 10/08/2019 Lenny Devyn W Z00.00 ENCNTR FOR GENERAL ADULT MEDICAL EXAM W/O ABNORMAL FINDINGS 10/15/2019 Lenny Devyn W B35.4 TINEA CORPORIS 10/15/2019 Lenny Devyn W E11.9 TYPE 2 DIABETES MELLITUS WITHOUT COMPLICATIONS 10/15/2019 Lenny Devyn W E78.5 HYPERLIPIDEMIA, UNSPECIFIED 10/15/2019 Lenny Devyn W F70 MILD INTELLECTUAL DISABILITIES 10/15/2019 Lenny Devyn W 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 10/15/2019 Lenny Devyn W I10 ESSENTIAL (PRIMARY) HYPERTENSION 10/15/2019 Lenny Devyn W I89.0 LYMPHEDEMA, NOT ELSEWHERE CLASSIFIED 10/15/2019 Lenny Devyn W K21.0 GASTRO-ESOPHAGEAL REFLUX DISEASE WITH ESOPHAGITIS 10/15/2019 Lenny Devyn W L03.115 CELLULITIS OF RIGHT LOWER LIMB 10/15/2019 Lenny Devyn W L03.119 CELLULITIS OF UNSPECIFIED PART OF LIMB 10/15/2019 Lenny Devyn W L89.892 PRESSURE ULCER OF OTHER SITE, STAGE 2 10/15/2019 Lenny Devyn W L89.90 PRESSURE ULCER OF UNSPECIFIED SITE, UNSPECIFIED STAGE 10/15/2019 Lenny Devyn W L89.92 PRESSURE ULCER OF UNSPECIFIED SITE, STAGE 2 10/15/2019 Brown Devyn W L89.93 PRESSURE ULCER OF UNSPECIFIED SITE, STAGE 3 10/15/2019 Lenny Devyn W R10.10 U 10/15/2019 Brown Devyn W R60.0 LOCALIZED EDEMA 10/15/2019 Brown Devyn W S91.114A LAC W/O FB OF RIGHT LESSER TOE(S) W/O DAMAGE TO NAIL, INIT 10/15/2019 Lenny Devyn W Z00.00 ENCNTR FOR GENERAL ADULT MEDICAL EXAM W/O ABNORMAL FINDINGS 10/22/2019 Lenny Devyn W B35.4 TINEA CORPORIS 10/22/2019 Lenny Devyn W E11.9 TYPE 2 DIABETES MELLITUS WITHOUT COMPLICATIONS 10/22/2019 Lenny Devyn W E78.5 HYPERLIPIDEMIA, UNSPECIFIED 10/22/2019 Lenny Devyn W F70 MILD INTELLECTUAL DISABILITIES 10/22/2019 Lenny Devyn W 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 10/22/2019 Lenny Devyn W I10 ESSENTIAL (PRIMARY) HYPERTENSION 10/22/2019 Lenny Devyn W I89.0 LYMPHEDEMA, NOT ELSEWHERE CLASSIFIED 10/22/2019 Lenny Devyn W K21.0 GASTRO-ESOPHAGEAL REFLUX DISEASE WITH ESOPHAGITIS 10/22/2019 Lenny Devyn W L03.115 CELLULITIS OF RIGHT LOWER LIMB 10/22/2019 Lenny Devyn W L03.119 CELLULITIS OF UNSPECIFIED PART OF LIMB 10/22/2019 Lenny Devyn W L89.892 PRESSURE ULCER OF OTHER SITE, STAGE 2 10/22/2019 Brown Devyn W L89.90 PRESSURE ULCER OF UNSPECIFIED SITE, UNSPECIFIED STAGE 10/22/2019 Brown Devyn W L89.92 PRESSURE ULCER OF UNSPECIFIED SITE, STAGE 2 10/22/2019 Brown Devyn W L89.93 PRESSURE ULCER OF UNSPECIFIED SITE, STAGE 3 10/22/2019 Lenny Devyn W R10.10 U 10/22/2019 Brown Devyn W R60.0 LOCALIZED EDEMA 10/22/2019 Brown Devyn W S91.114A LAC W/O FB OF RIGHT LESSER TOE(S) W/O DAMAGE TO NAIL, INIT 10/22/2019 Brown, Devyn W Z00.00 ENCNTR FOR GENERAL ADULT MEDICAL EXAM W/O ABNORMAL FINDINGS 10/27/2019 Brown, Devyn W B35.4 TINEA CORPORIS 10/27/2019 Brown, Devyn W E11.9 TYPE 2 DIABETES MELLITUS WITHOUT COMPLICATIONS 10/27/2019 Brown, Devyn W E78.5 HYPERLIPIDEMIA, UNSPECIFIED 10/27/2019 Brown, Devyn W F70 MILD INTELLECTUAL DISABILITIES 10/27/2019 Brown, Devyn W 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 10/27/2019 Brown, Devyn W I10 ESSENTIAL (PRIMARY) HYPERTENSION 10/27/2019 Brown, Devyn W I89.0 LYMPHEDEMA, NOT ELSEWHERE CLASSIFIED 10/27/2019 Brown, Devyn W K21.0 GASTRO-ESOPHAGEAL REFLUX DISEASE WITH ESOPHAGITIS 10/27/2019 Brown Devyn W L03.115 CELLULITIS OF RIGHT LOWER LIMB 10/27/2019 Brown, Devyn W L03.119 CELLULITIS OF UNSPECIFIED PART OF LIMB 10/27/2019 Brown Devyn W L89.892 PRESSURE ULCER OF OTHER SITE, STAGE 2 10/27/2019 Brown, Devyn W L89.90 PRESSURE ULCER OF UNSPECIFIED SITE, UNSPECIFIED STAGE 10/27/2019 Brown, Devyn W L89.92 PRESSURE ULCER OF UNSPECIFIED SITE, STAGE 2 10/27/2019 Brown Devyn W L89.93 PRESSURE ULCER OF UNSPECIFIED SITE, STAGE 3 10/27/2019 Brown Devyn W R10.10 U 10/27/2019 Brown, Devyn W R60.0 LOCALIZED EDEMA 10/27/2019 Brown Devyn W S91.114A LAC W/O FB OF RIGHT LESSER TOE(S) W/O DAMAGE TO NAIL, INIT 10/27/2019 Brown Devyn W Z00.00 ENCNTR FOR GENERAL ADULT MEDICAL EXAM W/O ABNORMAL FINDINGS 10/29/2019 Brown Devyn W B35.4 TINEA CORPORIS 10/29/2019 Brown, Devyn W E11.9 TYPE 2 DIABETES MELLITUS WITHOUT COMPLICATIONS 10/29/2019 Brown, Devyn W E78.5 HYPERLIPIDEMIA, UNSPECIFIED 10/29/2019 Brown, Devyn W F70 MILD INTELLECTUAL DISABILITIES 10/29/2019 Brown, Devyn W 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 10/29/2019 Brown, Devyn W I10 ESSENTIAL (PRIMARY) HYPERTENSION 10/29/2019 Devyn Galvez I89.0 LYMPHEDEMA, NOT ELSEWHERE CLASSIFIED 10/29/2019 Devyn Galvez K21.0 GASTRO-ESOPHAGEAL REFLUX DISEASE WITH ESOPHAGITIS 10/29/2019 Devyn Galvez W L03.115 CELLULITIS OF RIGHT LOWER LIMB 10/29/2019 Devyn Galvez W L03.119 CELLULITIS OF UNSPECIFIED PART OF LIMB 10/29/2019 Devyn Galvez L89.892 PRESSURE ULCER OF OTHER SITE, STAGE 2 10/29/2019 Devyn Galvez W L89.90 PRESSURE ULCER OF UNSPECIFIED SITE, UNSPECIFIED STAGE 10/29/2019 Devyn Galvez W L89.92 PRESSURE ULCER OF UNSPECIFIED SITE, STAGE 2 10/29/2019 Devyn Galvez W L89.93 PRESSURE ULCER OF UNSPECIFIED SITE, STAGE 3 10/29/2019 Devyn Galvez W R10.10 U 10/29/2019 Devyn Galvez R60.0 LOCALIZED EDEMA 10/29/2019 Devyn Galvez S91.114A LAC W/O FB OF RIGHT LESSER TOE(S) W/O DAMAGE TO NAIL, INIT 10/29/2019 Devyn Galvez Z00.00 ENCNTR FOR GENERAL ADULT MEDICAL EXAM W/O ABNORMAL FINDINGS Procedures There is no data. Results Test Result Range Comprehensive Metabolic Panel - 07/08/16 13:03 Albumin 3.8 g/dL 3.6-5.1 ALP 82 U/L 35-130 ALT 14 U/L 6-45 Anion Gap 16 6-14 AST 15 U/L 2-40 BUN 11 mg/dL 5-25 Calcium 9.4 mg/dL 8.3-10.4 Chloride 100 mmol/L 95-114 CO2 28 mEq/L 22-33 Creat 0.72 mg/dL 0.50-1.50 eGFR 84 mL/min/1.73m2 >59 Globulin 3.7 g/dL 2.3-3.5 Glucose 104 mg/dL 70-110 Osmo 289 280-295 Potassium 3.7 mmol/L 3.5-5.3 Sodium 140 mmol/L 134-148 TBil 0.5 mg/dL 0.2-1.2 TP 7.5 g/dL 6.0-8.3 Lipase - 05/02/17 15:15 Lipase 29 U/L 7-59 Comprehensive Metabolic Panel - 02/18/18 11:29 Albumin 4.0 g/dL 3.6-5.1 ALP 112 U/L 35-130 ALT 13 U/L 6-45 Anion Gap 13 6-14 AST 14 U/L 2-40 BUN 12 mg/dL 5-25 Calcium 9.5 mg/dL 8.3-10.4 Chloride 104 mmol/L 95-114 CO2 27 mEq/L 22-33 Creat 0.72 mg/dL 0.50-1.50 eGFR 84 mL/min/1.73m2 >59 Globulin 3.4 g/dL 2.3-3.5 Glucose 115 mg/dL 70-110 Osmo 290 280-295 Potassium 3.9 mmol/L 3.5-5.3 Sodium 140 mmol/L 134-148 TBil 0.3 mg/dL 0.2-1.2 TP 7.4 g/dL 6.0-8.3 Blood Culture - 02/18/18 11:29 PRELIM CULTURE RESULTS Blood Culture Negativ e, No Growth Day 1 FINAL CULTURE RESULTS Blood Culture Negative , No Growth Day 5 MEDIA PLATED Blood Culture Media Position C42 LAC CULTURE SOURCE left [id number]\ Blood Culture - 02/18/18 11:29 PRELIM CULTURE RESULTS Blood Culture Negativ e, No Growth Day 1 FINAL CULTURE RESULTS Blood Culture Negative , No Growth Day 5 MEDIA PLATED Blood Culture Media Position C48 RAC CULTURE SOURCE right ac Other Culture - 02/18/18 11:29 PRELIM CULTURE RESULTS No Growth 24 hours FINAL CULTURE RESULTS No Growth 48 hours BMP - 02/19/18 05:25 Anion Gap 12 6-14 BUN 12 mg/dL 5-25 Calcium 8.9 mg/dL 8.3-10.4 Chloride 105 mmol/L 95-114 CO2 28 mEq/L 22-33 Creat 0.70 mg/dL 0.50-1.50 eGFR 87 mL/min/1.73m2 >59 Glucose 133 mg/dL 70-110 Osmo 293 280-295 Potassium 3.7 mmol/L 3.5-5.3 Sodium 141 mmol/L 134-148 BMP - 02/20/18 05:30 Anion Gap 12 6-14 BUN 13 mg/dL 5-25 Calcium 8.8 mg/dL 8.3-10.4 Chloride 105 mmol/L 95-114 CO2 28 mEq/L 22-33 Creat 0.65 mg/dL 0.50-1.50 eGFR 94 mL/min/1.73m2 >59 Glucose 134 mg/dL 70-110 Osmo 293 280-295 Potassium 3.7 mmol/L 3.5-5.3 Sodium 141 mmol/L 134-148 BMP - 02/21/18 05:40 Anion Gap 11 6-14 BUN 14 mg/dL 5-25 Calcium 8.8 mg/dL 8.3-10.4 Chloride 106 mmol/L 95-114 CO2 28 mEq/L 22-33 Creat 0.70 mg/dL 0.50-1.50 eGFR 87 mL/min/1.73m2 >59 Glucose 131 mg/dL 70-110 Osmo 293 280-295 Potassium 3.6 mmol/L 3.5-5.3 Sodium 141 mmol/L 134-148 Urinalysis - 06/12/19 09:10 Icotest N/A Negative Urine Culture - 06/12/19 09:10 PRELIM CULTURE RESULTS >100,000 Alpha Hemoly tic Gram Positive FINAL CULTURE RESULTS >100,000 Alpha Hemolyt ic Gram Positive Probable Skin Contaminant No Further Workup done MEDIA PLATED Setup at 14:28 on 06/12/2019 CULTURE SOURCE urine Comprehensive Metabolic Panel - 07/02/19 14:24 Albumin 4.2 g/dL 3.6-5.1 ALP 100 U/L 35-130 ALT 16 U/L 6-45 Anion Gap 17 6-14 AST 16 U/L 2-40 BUN 37 mg/dL 5-25 Calcium 9.8 mg/dL 8.3-10.4 Chloride 100 mmol/L 95-114 CO2 28 mEq/L 22-33 Creat 1.19 mg/dL 0.50-1.50 eGFR 47 mL/min/1.73m2 >59 Globulin 3.7 g/dL 2.3-3.5 Glucose 115 mg/dL 70-110 Osmo 298 280-295 Potassium 4.8 mmol/L 3.5-5.3 Sodium 140 mmol/L 134-148 TBil 0.3 mg/dL 0.2-1.2 TP 7.9 g/dL 6.0-8.3 Urinalysis - 07/15/19 14:00 Icotest N/A Negative Urine Crystals 4+ Amorphous Urine Volume Urine Volume Sufficient (10mL) Urine-Appearance Slightly Cloudy Clear Urine-Bacteria Trace Urine-Bilirubin Negative Negative Urine-Blood Negative Negative Urine-Color Yellow Colorless-Lt. [place] ow Urine-Epithelial Cells 0-5/HPF Urine-Glucose Negative Negative Urine-Ketones Negative Negative Urine-Leukocytes Trace Negative Urine-Nitrite Negative Negative Urine-Other Urine Saved if Culture Need ed (48hrs from time of collection) Urine-pH 6.0 5-8.5 Urine-Protein Negative Negative Urine-RBC Negative Urine-Specific Byers 1.020 1.000-1 .030 Urine-WBC 0-2/HPF Urobilinogen 0.2 E.U./dL 0.2-1.0 Comprehensive Metabolic Panel - 09/10/19 12:29 Albumin 4.1 g/dL 3.6-5.1 ALP 93 U/L 35-130 ALT 9 U/L 6-45 Anion Gap 15 6-14 AST 11 U/L 2-40 BUN 29 mg/dL 5-25 Calcium 8.8 mg/dL 8.3-10.4 Chloride 99 mmol/L 95-114 CO2 26 mEq/L 22-33 Creat 1.13 mg/dL 0.50-1.50 eGFR 50 mL/min/1.73m2 >59 Globulin 3.1 g/dL 2.3-3.5 Glucose 129 mg/dL 70-110 Osmo 286 280-295 Potassium 4.8 mmol/L 3.5-5.3 Sodium 135 mmol/L 134-148 TBil 0.3 mg/dL 0.2-1.2 TP 7.2 g/dL 6.0-8.3 Prealbumin - 09/10/19 12:29 Prealbumin 24.00 mg/dL 16.00-38.00 Encounters ACCT No. Visit Date/Time Discharge Status Pt. Type Provider Facility Loc./Unit Complaint [id number] 12/10/2019 11:45:00 12/10/2019 23:59 :00 DIS Outpatient Devyn Galvez [id number] 10/29/2019 12:45:00 10/29/2019 23:59 :00 DIS Outpatient Devyn Galvez [id number] 09/12/2019 14:39:00 10/27/2019 07:07 :00 DIS Outpatient Devyn Galvez [id number] 10/22/2019 12:45:00 10/22/2019 23:59 :00 DIS Outpatient Devyn Galvez [id number] 10/15/2019 12:45:00 10/15/2019 23:59 :00 DIS Outpatient Brown, Devyn [id number] 10/08/2019 12:45:00 10/08/2019 23:59 :00 DIS Outpatient Brown, Devyn [id number] 10/01/2019 12:45:00 10/01/2019 23:59 :00 DIS Outpatient Brown, Devyn [id number] 09/24/2019 12:45:00 09/24/2019 23:59 :00 DIS Outpatient Brown, Devyn [id number] 09/17/2019 12:30:00 09/17/2019 23:59 :00 DIS Outpatient Brown, Devyn [id number] 2019 11:15:00 2019 23:59 :00 DIS Outpatient Brown, Devyn [id number] 07/31/2019 17:47:00 07/31/2019 23:59 :00 DIS Outpatient WHITNEY, TAE [id number] 07/16/2019 13:00:00 07/16/2019 13:00 :00 CAN Outpatient Brown, Devyn [id number] 07/15/2019 14:58:00 07/15/2019 23:59 :00 DIS Outpatient WHITNEY, TAE [id number] 07/07/2019 00:00:00 07/15/2019 15:21 :00 DIS Outpatient Brown, Devyn [id number] 07/09/2019 13:00:00 07/09/2019 23:59 :00 DIS Outpatient Brown, Devyn [id number] 07/08/2019 09:22:00 07/08/2019 23:59 :00 DIS Outpatient PaoniRubio [id number] 07/02/2019 14:23:00 07/02/2019 23:59 :00 DIS Outpatient Brown, Devyn [id number] 07/02/2019 11:30:00 07/02/2019 23:59 :00 DIS Outpatient Brown, Devyn [id number] 06/25/2019 11:30:00 06/25/2019 11:30 :00 CAN Outpatient Brown, Devyn [id number] 06/12/2019 11:51:00 06/12/2019 23:59 :00 DIS Outpatient WHITNEY, TAE [id number] 06/12/2019 09:48:00 06/12/2019 23:59 :00 DIS Outpatient WHITNEY, TAE [id number] 04/24/2019 10:43:00 04/24/2019 23:59 :00 DIS Outpatient TAE WHITNEY [id number] 02/27/2019 15:31:00 02/27/2019 23:59: 00 DIS Outpatient TAE WHITNEY [id number] 02/20/2019 15:30:00 02/20/2019 15:30: 00 CAN Outpatient TEA WHITNEY [id number] 01/29/2019 10:40:00 01/29/2019 23:59: 00 DIS Outpatient TAE WHITNEY [id number] 07/26/2018 12:46:00 07/26/2018 23:59: 00 DIS Outpatient TAE WHITNEY [id number] 02/18/2018 10:45:00 02/21/2018 12:37: 00 DIS Inpatient TAE WHITNEY [id number] 05/03/2017 15:20:00 05/03/2017 23:59: 00 DIS Outpatient TAE WHITNEY [id number] 07/09/2016 10:52:00 07/09/2016 13:00: 00 DIS Outpatient T[facility] [id number] 07/08/2016 12:25:00 07/08/2016 14:10: 00 DIS Outpatient T[facility] [id number] 06/29/2016 10:16:00 06/29/2016 23:59: 00 DIS Outpatient TAE WHITNEY [id number] 12/15/2019 15:05:36 Document Registration [id number] 12/12/2019 14:03:27 Document Registration [id number] 12/26/2018 13:00:00 Document Registration [id number] 10/28/2018 10:00:00 Document Registration [id number] 10/15/2018 09:11:00 Document Registration [id number] 08/12/2018 14:58:00 Document Registration [id number] 07/24/2018 10:00:00 Document Registration [id number] 04/24/2018 09:10:00 Document Registration [id number] 04/09/2018 10:00:00 Document Registration [id number] 03/26/2018 10:30:00 Document Registration [id number] 03/12/2018 10:30:00 Document Registration [id number] 02/28/2018 09:30:00 Document Registration [id number] 05/02/2017 14:20:00 Document Registration [id number] 07/08/2016 13:24:48 Document Registration [id number] 10/18/2018 10:44:00 019 23:59:59 CLS Outpatient TAE WHITNEY MD [facility] RAD FALL WITH SWELLING AND PAIN OVER ENTIRE FOOT [id number] 01/31/2018 12:00:00 018 23:59:59 CLS Preadmit CORONA ARIAS [facility] CARD ABDOMINAL PAIN,DIARRHEA [id number] 01/16/2018 08:39:00 018 23:59:59 CLS Outpatient TAE WHITNEY MD [facility] RAD DIARRHEA,ABDOMINAL PAIN,DIFFUSE,SCREENING [id number] 05/03/2017 11:43:00 017 23:59:59 CLS Preadmit TAE WHITNEY MD [facility] RAD RUQ MID EPIGASTIC PAIN AFTER EATING [id number] 01/09/2017 12:07:00 017 23:59:59 CLS Preadmit TAE WHITNEY MD [facility] CARD PEDAL EDEMA,HTN [id number] 01/04/2017 12:56:00 017 23:59:59 CLS Outpatient TAE WHITNEY MD [facility] CARD PEDAL EDEMA,HTN [id number] 12/04/2016 10:53:00 017 23:59:59 CLS Preadmit TAE WHITNEY MD [facility] RAD PEDAL EDEMA,CHRONIC RLE WOUND [id number] 04/18/2016 13:06:00 016 23:59:59 CLS Outpatient TAE WHITNEY MD [facility] RAD RT FOOT COOL,HTN [id number] 10/01/2015 10:21:00 016 12:00:00 DIS Outpatient SURESH BARON MD [facility] WOUNDCARE
[2019-12-16] MEDS ORDERED: LIDOCAINE 2% 20 ML (XYLOCAINE) VIAL INJ STA (00:30)
[2019-12-16] MEDS ORDERED: TETANUS,DIPTH,PERTUSS P/F (BOOSTRIX) 0.5 ML VIAL IM ONE (00:30)
[2019-12-16] MEDS ORDERED: LIDOCAINE PF 2% 5 ML (XYLOCAINE) VIAL ONE (00:34)
[2019-12-16] MEDS ORDERED: RX-TRIMETH/SULFA. 160-800 MG (BACTRIM DS) TAB PPK#2 PO STA (01:36)
[2019-12-16] MEDS ORDERED: SULF1TAB35 PO (01:40)
--- NOTE | 2019-12-16 01:40 | ED Lower Extremity ---
General Chief Complaint: Trauma-Non Activation Stated Complaint: TOE LAC Nursing Triage Note: Pt to [facility] 5 from [facility] after being assisted to ground during wheelchair to bed transfer tonight. Pt has laceration in crease to 1st toe on right foot. Pt is diabetic so staff wanted her to get checked out. Pt has no other complaints at this time. Nursing Sepsis Screen: No Definite Risk Source: patient (VERY POOR HISTORIAN) History of Present Illness Date Seen by Provider: Dec 16, 2019 Time Seen by Provider: 00:27 Initial Comments PT ARRIVES VIA EMS FROM HOME--PT IS WITH [facility] AND HAS A ROOM MATE, BUT NO STAFF ARE WITH PT PT STATES SHE WAS ASLEEP AND WOKE UP AND GOT OUT OF BED BECAUSE HER BACK WAS HURTING ( HAS CHRONIC BACK PAIN ) AND SOMEHOW INJURED HER RIGHT GREAT TOE--HAS LACERATION TO BOTTOM /BASE OF RIGHT GREAT TOE PT WAS BAREFOOT AT THE TIME GIVES CONFLICTING INFORMATION--FIRST STATES SHE WAS ALONE, THEN LATER STATES THAT A STAFF MEMBER OF [facility] WAS ASSISTING HER FROM THE BED INTO HER WHEELCHAIR, BUT DOES NOT KNOW EXACTLY HOW SHE INJURED HER TOE NO PARESTHESIAS OR MOTOR DEFICITS TO TOE DENIES ANY OTHER INJURIES FROM THE INCIDENT HAS HAD PREVIOUS RIGHT 5TH TOE AMPUTATION, BUT DENIES ANY PRIOR INJURIES TO THE GREAT TOE OR FOOT PT IS DIABETIC, BUT DOES NOT KNOW IF SHE HAS NEUROPATHY OR NOT STATES SHE IS IN A WHEELCHAIR MOST OF THE TIME, BUT DOES NOT KNOW WHY PT STATES SHE IS "A HIGH FALL RISK" --DENIES ACTUALLY FALLING TONIGHT LAST TETANUS VACCINATION IS UNKNOWN PCP: DR. WHITNEY Allergies and Home Medications Allergies Coded Allergies: Penicillins (Unverified Allergy, Mild, 10/03/08) Home Medications Sulfamethoxazole/Trimethoprim 1 Each Tablet, 1 EACH PO BID Prescribed by: ABIEL SINGER on 12/16/19 0610 Patient Home Medication List Home Medication List Reviewed: Yes Review of Systems Constitutional: no symptoms reported Musculoskeletal: see HPI Skin: see HPI Psychiatric/Neurological: No Symptoms Reported Past Ymktyaz-Mecgsg-Nnlyoi Hx Past Med/Social Hx: Reviewed and Corrections made Patient Social History Alcohol Use: Rarely Uses Recreational Drug Use: No Smoking Status: Current Everyday Smoker Type Used: Cigarettes 2nd Hand Smoke Exposure: Yes Recent Foreign Travel: No Contact w/Someone Who Travel: No Recent Infectious Disease Expo: No Recent Hopitalizations: No Seasonal Allergies Seasonal Allergies: No Past Medical History Surgeries: Yes (RIGHT 5TH TOE AMPUTATION) Amputation, Orthopedic Respiratory: No Cardiac: Yes Hypertension Neurological: No Genitourinary: No Musculoskeletal: Yes (FALLS; POOR MOBILITY/MOSTLY WHEELCHAIR BOUND) Arthritis, Chronic Back Pain Endocrine: Yes Diabetes, Non-Insulin dep HEENT: No Cancer: No Psychosocial: Yes Personality Disorder, Depression Integumentary: No Blood Disorders: No Physical Exam Vital Signs Vital Signs - First Documented 12/16/19 00:24 Temp 36.5 Pulse 110 Resp 16 B/P (MAP) 113/75 (88) Pulse Ox 97 O2 Delivery Room Air Capillary Refill : Less Than 3 Seconds Height, Weight, BMI Height: '" Weight: lbs. oz. kg; 42.00 BMI Method:Estimated General Appearance: no apparent distress, obese Hips: bilateral hip normal inspection Legs: bilateral leg normal inspection Knees: bilateral knee normal inspection Ankles: bilateral ankle normal inspection Feet: left foot normal inspection; right foot other (PLANTAR SURFACE OF RIGHT GREAT TOE, IN CREASE AT BASE OF TOE, WITH LARGE FULL THICKNESS LACERATION 4 CM LONG. DISTAL MOTOR/SENSORY/VASCULAR INTACT. ALL TOES WITH EXTENSIVE ONYCHOMYCOSIS, AND BOTH FEET WITH EXTENSIVE THICK SCALING AND PEELING. 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, no motor/sensory deficits, alert, normal mood/affect, oriented x 3 Skin: normal color, warm/dry, other (LACERATION ABOVE) Procedures/Interventions Other Wound Location BASE OF RIGHT GREAT TOE, PLANTAR ASPECT Wound Length (cm): 4 Wound's Depth, Shape: linear, sub Q Wound Explored: clean Irrigated w/ Saline (ccs): 250 Anesthesia: 1% Lidocaine (2% LIDOCAINE PLAIN) Suture: Ethlion Suture Size: 4-0 Number of Sutures: 7 Layer Closure?: 1 Sterile Dressing Applied?: Yes Progress ALSO PLACED IN POST OP SHOE Splinting and Joint Reduction : Splints: Post Op Shoe Progress/Results/Core Measures Results/Orders My Orders Orders - ABIEL SINGER DO Toe(S) (12/16/19 00:30) Dipht,Pertuss(Acell),Tet Adult (Boostrix (12/16/19 00:30) Lidocaine 2% Injection 20 Ml (Xylocaine (12/16/19 00:30) Lidocaine 2% Pf 5 Ml (Xylocaine 2% Pf) (12/16/19 00:34) Rx-Trimeth/Sulfameth Ds Tab (Rx-Bactrim/ (12/16/19 01:36) Wound Dressing-Ed (12/16/19 01:36) Post-Op Shoe (12/16/19 01:36) Medications Given in ED Current Medications Medications Dose Ordered Sig/Natalie Route Start Time Stop Time Status Last Admin Dose Admin Diphtheria/ Tetanus/Acell Pertussis 0.5 ml ONCE ONCE IM 12/16/19 00:30 12/16/19 00:32 DC 12/16/19 00:41 0.5 ML Vital Signs/I&O 12/16/19 00:24 Temp 36.5 Pulse 110 Resp 16 B/P (MAP) 113/75 (88) Pulse Ox 97 O2 Delivery Room Air Blood Pressure Mean: 88 Progress Progress Note : Progress Note PT EXPLAINED THE IMPORTANCE OF FOLLOW UP WITH PCP IN 2 DAYS FOR WOUND CHECK, AND STRESSED THE IMPORTANCE OF WEARING POST OP SHOE AND NO WEIGHT BEARING ON FOOT, UNTIL CLEARED BY DR. ALSO EXPLAINED THE HIGH RISK OF INFECTION AND SLOW HEALING TO TOE/FOOT DUE TO LOCATION AND HISTORY OF DIABETES Diagnostic Imaging Comments XRAYS RIGHT GREAT TOE--NO FX OR DISLOCATION, PENDING RADIOLOGIST REVIEW Reviewed: Reviewed by Me Departure Impression Primary Impression: Laceration of right great toe Additional Impressions: Diabetes Upryhwkuie-ugjynpawy-rljzwtk (DPT) vaccination administered at current visit Disposition: 01 HOME, SELF-CARE Condition: Stable Departure-Patient Inst. Referrals: TAE WHITNEY MD (PCP/Family) Primary Care Physician Patient Instructions: Diphtheria and Tetanus Toxoids, and Acellular Pertussis Vaccine, Laceration Repair With Stitches (DC) Add. Discharge Instructions: LEAVE DRESSING IN PLACE, AND WEAR POST OP SHOE AT ALL TIMES ELEVATE FOOT MUCH POSSIBLE AND NO WEIGHT BEARING--USE WHEELCHAIR AT ALL TIMES FOLLOW UP WITH DR. WHITNEY IN 2 DAYS TO RECHECK WOUND SUTURES OUT IN 10-14 DAYS All discharge instructions reviewed with patient and/or family. Voiced understanding. Scripts Sulfamethoxazole/Trimethoprim (Bactrim Ds Tablet) 1 Each Tablet 1 EACH PO BID, #20 TAB Prov: ABIEL SINGER DO 12/16/19 Images Extremities-Lower 1 - Laceration ABIEL SINGER DO Dec 16, 2019 01:40
--- NOTE | 2019-12-16 01:50 | NUR ---
Charli Rowan called for transport back to facility.
[2019-12-16 02:48] VITALS: BP 110/72
--- NOTE | 2019-12-16 07:54 | Diagnostic Imaging Report ---
EXAM: TOE(S) INDICATION: Toe pain. COMPARISON: 10/18/2018. 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 No acute fractures. Normal alignment. No suspicious radiopaque foreign body. IMPRESSION: No acute radiographic findings in the right toes. Dictated by: Dictated on workstation # [id number]
== END 2019-12-16 02:50 | disposition home or self-care (01) ==
LOC: EDUNIT# 00:23 → ER 00:24
DX: S91.111A Laceration without foreign body of right great toe without damage to nail, initial encounter (principal); E11.9 Type 2 diabetes mellitus without complications; F17.210 Nicotine dependence, cigarettes, uncomplicated; Z23 Encounter for immunization; Z89.421 Acquired absence of other right toe(s); Z88.0 Allergy status to penicillin; X58.XXXA Exposure to other specified factors, initial encounter
CPT/HCPCS: 73660; 90715

== ENCOUNTER → 2021-01-04 | Outpatient (CLI) | payer MEDICAID ==
[~2021-01-04] MED LIST changes: +SULF1TAB38 PO
== END ==
LOC: WOUNDCARE 08:06
PROVIDERS: ATTEND Surgery
DX: I70.234 Atherosclerosis of native arteries of right leg with ulceration of heel and midfoot (principal); I70.244 Atherosclerosis of native arteries of left leg with ulceration of heel and midfoot; L97.412 Non-pressure chronic ulcer of right heel and midfoot with fat layer exposed; L97.422 Non-pressure chronic ulcer of left heel and midfoot with fat layer exposed; E11.621 Type 2 diabetes mellitus with foot ulcer; L22 Diaper dermatitis; L98.492 Non-pressure chronic ulcer of skin of other sites with fat layer exposed; E66.01 Morbid (severe) obesity due to excess calories; R26.89 Other abnormalities of gait and mobility
CPT/HCPCS: A6212; G0463

== ENCOUNTER → 2021-01-13 | Outpatient (CLI) | payer MEDICAID | LOC: WOUNDCARE 10:02 | PROVIDERS: ATTEND Surgery | DX: I70.234 Atherosclerosis of native arteries of right leg with ulceration of heel and midfoot (principal); I70.244 Atherosclerosis of native arteries of left leg with ulceration of heel and midfoot; I96 Gangrene, not elsewhere classified; L97.412 Non-pressure chronic ulcer of right heel and midfoot with fat layer exposed; L97.422 Non-pressure chronic ulcer of left heel and midfoot with fat layer exposed; E11.621 Type 2 diabetes mellitus with foot ulcer; L22 Diaper dermatitis; L98.492 Non-pressure chronic ulcer of skin of other sites with fat layer exposed; E66.01 Morbid (severe) obesity due to excess calories; R26.89 Other abnormalities of gait and mobility | CPT/HCPCS: A6212; G0463; 99214 ==

== ENCOUNTER → 2021-02-04 | Outpatient (CLI) | payer MEDICAID | LOC: WOUNDCARE 09:01 | PROVIDERS: ATTEND Surgery | DX: I70.234 Atherosclerosis of native arteries of right leg with ulceration of heel and midfoot (principal); I70.244 Atherosclerosis of native arteries of left leg with ulceration of heel and midfoot; L97.412 Non-pressure chronic ulcer of right heel and midfoot with fat layer exposed; L97.422 Non-pressure chronic ulcer of left heel and midfoot with fat layer exposed; E11.621 Type 2 diabetes mellitus with foot ulcer; L22 Diaper dermatitis; L98.492 Non-pressure chronic ulcer of skin of other sites with fat layer exposed; E66.01 Morbid (severe) obesity due to excess calories; E11.52 Type 2 diabetes mellitus with diabetic peripheral angiopathy with gangrene; R26.89 Other abnormalities of gait and mobility | CPT/HCPCS: A6197; A6212; G0463; 99215 ==

== ENCOUNTER → 2021-02-18 | Outpatient (CLI) | payer MEDICAID | LOC: WOUNDCARE 08:57 | PROVIDERS: ATTEND Surgery | DX: L97.412 Non-pressure chronic ulcer of right heel and midfoot with fat layer exposed (principal); L97.422 Non-pressure chronic ulcer of left heel and midfoot with fat layer exposed; E11.621 Type 2 diabetes mellitus with foot ulcer; L22 Diaper dermatitis; L98.492 Non-pressure chronic ulcer of skin of other sites with fat layer exposed; E66.01 Morbid (severe) obesity due to excess calories; E11.52 Type 2 diabetes mellitus with diabetic peripheral angiopathy with gangrene; R26.89 Other abnormalities of gait and mobility | CPT/HCPCS: 11042; G0463 ==

== ENCOUNTER → 2021-02-24 | Outpatient (CLI) | payer MEDICAID | LOC: WOUNDCARE 09:27 | PROVIDERS: ATTEND Surgery | DX: I96 Gangrene, not elsewhere classified (principal); L97.412 Non-pressure chronic ulcer of right heel and midfoot with fat layer exposed; L97.422 Non-pressure chronic ulcer of left heel and midfoot with fat layer exposed; E11.621 Type 2 diabetes mellitus with foot ulcer; L22 Diaper dermatitis; L98.492 Non-pressure chronic ulcer of skin of other sites with fat layer exposed; E66.01 Morbid (severe) obesity due to excess calories; R26.89 Other abnormalities of gait and mobility | CPT/HCPCS: A6212; G0463; 99214 ==

== ENCOUNTER → 2021-03-03 | Outpatient (CLI) | payer MEDICAID | LOC: WOUNDCARE 09:23 | PROVIDERS: ATTEND Surgery | DX: E11.621 Type 2 diabetes mellitus with foot ulcer (principal); L97.412 Non-pressure chronic ulcer of right heel and midfoot with fat layer exposed; L97.422 Non-pressure chronic ulcer of left heel and midfoot with fat layer exposed; E11.52 Type 2 diabetes mellitus with diabetic peripheral angiopathy with gangrene; L22 Diaper dermatitis; L98.492 Non-pressure chronic ulcer of skin of other sites with fat layer exposed; E66.01 Morbid (severe) obesity due to excess calories | CPT/HCPCS: A6212; G0463; 99214 ==

== ENCOUNTER → 2021-03-10 | Outpatient (CLI) | payer MEDICAID | LOC: WOUNDCARE 09:32 | PROVIDERS: ATTEND Family Medicine | DX: L97.412 Non-pressure chronic ulcer of right heel and midfoot with fat layer exposed (principal); L97.422 Non-pressure chronic ulcer of left heel and midfoot with fat layer exposed; E11.621 Type 2 diabetes mellitus with foot ulcer; L22 Diaper dermatitis; L98.492 Non-pressure chronic ulcer of skin of other sites with fat layer exposed; E66.01 Morbid (severe) obesity due to excess calories; E11.52 Type 2 diabetes mellitus with diabetic peripheral angiopathy with gangrene; R26.89 Other abnormalities of gait and mobility | CPT/HCPCS: A6212; G0463; 99214 ==

== ENCOUNTER → 2021-03-17 | Outpatient (CLI) | payer MEDICAID | LOC: WOUNDCARE 09:00 | PROVIDERS: ATTEND Family Medicine | DX: L22 Diaper dermatitis (principal); L98.492 Non-pressure chronic ulcer of skin of other sites with fat layer exposed; E66.01 Morbid (severe) obesity due to excess calories; I96 Gangrene, not elsewhere classified; R26.89 Other abnormalities of gait and mobility | CPT/HCPCS: 99214 ==

== ENCOUNTER → 2021-03-24 | Outpatient (CLI) | payer MEDICAID | LOC: WOUNDCARE 09:29 | PROVIDERS: ATTEND Family Medicine | DX: L22 Diaper dermatitis (principal); L98.492 Non-pressure chronic ulcer of skin of other sites with fat layer exposed; E66.01 Morbid (severe) obesity due to excess calories; L03.115 Cellulitis of right lower limb; I96 Gangrene, not elsewhere classified; R26.89 Other abnormalities of gait and mobility | CPT/HCPCS: 99213 ==

== ENCOUNTER → 2021-03-31 | Outpatient (CLI) | payer MEDICAID | LOC: WOUNDCARE 09:16 | PROVIDERS: ATTEND Family Medicine | DX: L22 Diaper dermatitis (principal); L98.492 Non-pressure chronic ulcer of skin of other sites with fat layer exposed; E66.01 Morbid (severe) obesity due to excess calories; L03.115 Cellulitis of right lower limb; I96 Gangrene, not elsewhere classified; R26.89 Other abnormalities of gait and mobility | CPT/HCPCS: 99213 ==

== ENCOUNTER → 2021-04-07 | Outpatient (CLI) | payer MEDICAID | LOC: WOUNDCARE 09:22 | PROVIDERS: ATTEND Family Medicine | DX: L98.492 Non-pressure chronic ulcer of skin of other sites with fat layer exposed (principal); E66.01 Morbid (severe) obesity due to excess calories; L03.115 Cellulitis of right lower limb; E11.622 Type 2 diabetes mellitus with other skin ulcer; E11.52 Type 2 diabetes mellitus with diabetic peripheral angiopathy with gangrene; R26.89 Other abnormalities of gait and mobility; F17.211 Nicotine dependence, cigarettes, in remission | CPT/HCPCS: 99214 ==

== ENCOUNTER → 2021-04-21 | Outpatient (CLI) | payer MEDICAID | LOC: WOUNDCARE 09:28 | PROVIDERS: ATTEND Family Medicine | DX: L22 Diaper dermatitis (principal); L98.492 Non-pressure chronic ulcer of skin of other sites with fat layer exposed; E66.01 Morbid (severe) obesity due to excess calories; E11.622 Type 2 diabetes mellitus with other skin ulcer; E11.52 Type 2 diabetes mellitus with diabetic peripheral angiopathy with gangrene; R26.89 Other abnormalities of gait and mobility; F17.211 Nicotine dependence, cigarettes, in remission | CPT/HCPCS: 99213 ==

== ENCOUNTER → 2021-04-28 | Outpatient (CLI) | payer MEDICAID | LOC: WOUNDCARE 09:30 | PROVIDERS: ATTEND Family Medicine | DX: L22 Diaper dermatitis (principal); L98.492 Non-pressure chronic ulcer of skin of other sites with fat layer exposed; E66.01 Morbid (severe) obesity due to excess calories; E11.622 Type 2 diabetes mellitus with other skin ulcer; R26.89 Other abnormalities of gait and mobility; E11.52 Type 2 diabetes mellitus with diabetic peripheral angiopathy with gangrene; F17.211 Nicotine dependence, cigarettes, in remission | CPT/HCPCS: 99214 ==

== ENCOUNTER → 2021-05-05 | Outpatient (CLI) | payer MEDICAID | LOC: WOUNDCARE 09:33 | PROVIDERS: ATTEND Family Medicine | DX: L22 Diaper dermatitis (principal); L98.492 Non-pressure chronic ulcer of skin of other sites with fat layer exposed; E66.01 Morbid (severe) obesity due to excess calories; E11.622 Type 2 diabetes mellitus with other skin ulcer; E11.52 Type 2 diabetes mellitus with diabetic peripheral angiopathy with gangrene; R26.89 Other abnormalities of gait and mobility; F17.211 Nicotine dependence, cigarettes, in remission | CPT/HCPCS: 99213 ==

== ENCOUNTER 2021-07-28 16:21 | Emergency (ER) | payer MEDICAID ==
[~2021-07-28] VITALS: Ht 160 cm; Wt 90.0 kg
--- NOTE | 2021-07-28 16:36 | ED General ---
General Chief Complaint: General Problems/Pain Stated Complaint: DEHYDRATION Nursing Triage Note: ARRIVED VIA EMS FROM [facility]. 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 PT COMPLAINS OF SORE THROAT. Source of Information: Patient, EMS, [facility] Living Records Exam Limitations: No Limitations History of Present Illness Date Seen by Provider: Jul 28, 2021 Time Seen by Provider: 16:35 Initial Comments Patient is a 60-year-old female who presents ED with shortness of breath, decreased urine output. History of diabetes, peripheral autonomic neuropathy, GERD who presents ED by EMS. Patient main complaint is shortness of breath and sore throat. Sore throat since yesterday. Difficulty swallowing. Has not been eating or drinking. Decreased urine output over the past 24 hours. Last urination was yesterday morning. Does have a indwelling Dueñas catheter. Catheter was replaced today but still no urine output. She denies abdominal pain, chest pain, headache, dizziness. She is afebrile. Increased abdominal breathing noted on exam. No history of kidney disease Allergies and Home Medications Allergies Coded Allergies: Penicillins (Unverified Allergy, Mild, 10/03/08) Patient Home Medication List Home Medication List Reviewed: Yes Bupropion Hcl (Wellbutrin Xl) 300 Mg Tab.sr.24h, (Reported) Entered as Reported by: HALINA HANEY on 10/03/081116 Bupropion Hcl (Wellbutrin Sr) 150 Mg Tablet, (Reported) Entered as Reported by: MAURICIO GRIFFITH on 06/12/092030 Calcium Carbonate/Vitamin D3 (Os-Neil 500+D Caplet) 1 Each Tablet, (Reported) Entered as Reported by: HALINA HANEY on 10/03/081116 Loratadine (Claritin) 10 Mg Tab, (Reported) Entered as Reported by: HALINA HANEY on 10/03/08 111 Sulfamethoxazole/Trimethoprim (Bactrim Ds Tablet) 1 Each Tablet, 1 EACH PO BID Prescribed by: ABIEL SINGER on 12/16/19 0140 Review of Systems Review of Systems Constitutional: No chills, No diaphoresis; malaise, weakness EENTM: No hearing loss, No blurred vision, No dental problems, No mouth pain, No mouth swelling, No throat pain Respiratory: No cough; short of breath Cardiovascular: No chest pain Gastrointestinal: No abdominal pain, No diarrhea, No nausea, No vomiting Genitourinary: No decreased output Musculoskeletal: No back pain, No joint pain Skin: No change in color, No change in hair/nails All Other Systems Reviewed Negative Unless Noted: Yes Past Cfbvnqd-Ywisqx-Nrnxfv Hx Seasonal Allergies Seasonal Allergies: No Past Medical History Surgeries: Yes (RIGHT 5TH TOE AMPUTATION) Amputation, Orthopedic Respiratory: No Cardiac: Yes Hypertension Neurological: No Genitourinary: No Musculoskeletal: Yes (FALLS; POOR MOBILITY/MOSTLY WHEELCHAIR BOUND) Arthritis, Chronic Back Pain Endocrine: Yes Diabetes, Non-Insulin dep HEENT: No Cancer: No Psychosocial: Yes Personality Disorder, Depression Integumentary: No Blood Disorders: No Physical Exam Vital Signs Vital Signs - First Documented 07/28/21 07/28/21 16:21 18:03 Temp 37.3 Pulse 93 Resp 24 B/P (MAP) 130/47 (74) Pulse Ox 92 O2 Delivery Room Air O2 Flow Rate 2.00 Capillary Refill : Less Than 3 Seconds Height, Weight, BMI Height: '" Weight: lbs. oz. kg; 35.00 BMI Method:Estimated General Appearance: No Apparent Distress, WD/WN Eyes: Bilateral Eye Normal Inspection, Bilateral Eye PERRL, Bilateral Eye EOMI HEENT: PERRL/EOMI, TMs Normal, Normal ENT Inspection Neck: Full Range of Motion, Normal Inspection, Non Tender, Supple Respiratory: Chest Non Tender, Lungs Clear, Normal Breath Sounds, No Accessory Muscle Use, No Respiratory Distress Cardiovascular: Regular Rate, Rhythm, No Edema, No Gallop, No JVD Gastrointestinal: Normal Bowel Sounds, No Organomegaly, No Pulsatile Mass Back: Normal Inspection, No CVA Tenderness Extremity: Normal Capillary Refill, Normal Inspection, Normal Range of Motion Neurologic/Psychiatric: Alert, Oriented x3, Disoriented Skin: Normal Color, Warm/Dry Focused Exam Lactate Level 07/28/21 17:30: Lactic Acid Level 12.26*H 07/28/21 19:52: Lactic Acid Level 15.43*H Lactic Acid Level Laboratory Tests Test 07/28/21 17:30 07/28/21 19:52 Lactic Acid Level 12.26 MMOL/L (0.50-2.00) *H 15.43 MMOL/L (0.50-2.00) *H Procedures/Interventions Suture Size: 4-0 Progress/Results/Core Measures Suspected Sepsis SIRS Temperature: Pulse: 93 Respiratory Rate: 24 Laboratory Tests 07/28/21 16:50: White Blood Count 20.5H Blood Pressure 130 /47 Mean: 74 07/28/21 17:30: Lactic Acid Level 12.26*H 07/28/21 19:52: Lactic Acid Level 15.43*H Laboratory Tests 07/28/21 16:50: Creatinine 5.85H, INR Comment 1.3, Platelet Count 588H, Total Bilirubin 0.2 07/28/21 19:52: Creatinine 5.69H Results/Orders Lab Results Laboratory Tests Test 07/28/21 16:38 07/28/21 16:44 07/28/21 16:50 07/28/21 17:30 Range/Units Influenza Type A (RT-PCR) Not Detected Not Detecte Influenza Type B (RT-PCR) Not Detected Not Detecte SARS-CoV-2 RNA (RT-PCR) Not Detected Not Detecte Group A Streptococcus Screen NEGATIVE NEGATIVE Blood Gas Puncture Site LFT RAD Blood Gas Patient Temperature 37.3 Arterial Blood pH 7.00 *L 7.37-7.43 Arterial Blood Partial Pressure CO2 21 L 35-45 MMHG Arterial Blood Partial Pressure O2 101 H 79-93 MMHG Arterial Blood HCO3 5 *L 23-27 MMOL/L Arterial Blood Total CO2 5.6 *L 21.0-31.0 MMOL/L Arterial Blood Oxygen Saturation 94 94-100 % Arterial Blood Base Excess -24.0 L -2.5-2.5 MMOL/L Shantanu Test POS Blood Gas Ventilator Setting NO Blood Gas Inspired Oxygen ROOM AIR White Blood Count 20.5 H 4.3-11.0 10^3/uL Red Blood Count 3.57 L 3.80-5.11 10^6/uL Hemoglobin 10.6 L 11.5-16.0 g/dL Hematocrit 37 35-52 % Mean Corpuscular Volume 104 H 80-99 fL Mean Corpuscular Hemoglobin 30 25-34 pg Mean Corpuscular Hemoglobin Concent 29 L 32-36 g/dL Red Cell Distribution Width 14.8 H 10.0-14.5 % Platelet Count 588 H 130-400 10^3/uL Mean Platelet Volume 10.8 9.0-12.2 fL Immature Granulocyte % (Auto) 7 % Neutrophils (%) (Auto) 81 H 42-75 % Lymphocytes (%) (Auto) 8 L 12-44 % Monocytes (%) (Auto) 4 0-12 % Eosinophils (%) (Auto) 0 0-10 % Basophils (%) (Auto) 1 0-10 % Neutrophils # (Auto) 16.6 H 1.8-7.8 10^3/uL Lymphocytes # (Auto) 1.6 1.0-4.0 10^3/uL Monocytes # (Auto) 0.7 0.0-1.0 10^3/uL Eosinophils # (Auto) 0.0 0.0-0.3 10^3/uL Basophils # (Auto) 0.1 0.0-0.1 10^3/uL Immature Granulocyte # (Auto) 1.4 H 0.0-0.1 10^3/uL Neutrophils % (Manual) 82 % Lymphocytes % (Manual) 12 % Monocytes % (Manual) 4 % Eosinophils % (Manual) 1 % Band Neutrophils 1 % Smudge Cells MOD Polychromasia SLIGHT Microcytosis SLIGHT Prothrombin Time 16.2 H 12.2-14.7 SEC INR Comment 1.3 0.8-1.4 Activated Partial Thromboplast Time 32 24-35 SEC Sodium Level 132 L 135-145 MMOL/L Potassium Level 9.7 *H 3.6-5.0 MMOL/L Chloride Level 94 L 98-107 MMOL/L Carbon Dioxide Level 5 *L 21-32 MMOL/L Anion Gap 33 H 5-14 MMOL/L Blood Urea Nitrogen 82 H 7-18 MG/DL Creatinine 5.85 H 0.60-1.30 MG/DL Estimat Glomerular Filtration Rate 8 BUN/Creatinine Ratio 14 Glucose Level 59 *L 70-105 MG/DL Calcium Level 10.0 8.5-10.1 MG/DL Corrected Calcium 10.2 H 8.5-10.1 MG/DL Magnesium Level 2.2 1.6-2.4 MG/DL Total Bilirubin 0.2 0.1-1.0 MG/DL Aspartate Amino Transf (AST/SGOT) 12 5-34 U/L Alanine Aminotransferase (ALT/SGPT) 12 0-55 U/L Alkaline Phosphatase 71 40-136 U/L Myoglobin 305.1 H 10.0-92.0 NG/ML Troponin I < 0.028 <0.028 NG/ML B-Type Natriuretic Peptide 1208.3 H <100.0 PG/ML Total Protein 6.9 6.4-8.2 GM/DL Albumin 3.7 3.2-4.5 GM/DL Lactic Acid Level 12.26 *H 0.50-2.00 MMOL/L Test 07/28/21 19:23 07/28/21 19:52 Range/Units Blood Gas Puncture Site RGHT RAD Blood Gas Patient Temperature 36.2 Arterial Blood pH 7.06 *L 7.37-7.43 Arterial Blood Partial Pressure CO2 17 *L 35-45 MMHG Arterial Blood Partial Pressure O2 110 H 79-93 MMHG Arterial Blood HCO3 5 *L 23-27 MMOL/L Arterial Blood Total CO2 5.2 *L 21.0-31.0 MMOL/L Arterial Blood Oxygen Saturation 97 94-100 % Arterial Blood Base Excess -24.0 L -2.5-2.5 MMOL/L Shantanu Test POS Blood Gas Ventilator Setting NO Blood Gas Inspired Oxygen ROOM AIR Sodium Level 136 135-145 MMOL/L Potassium Level 7.4 #*H 3.6-5.0 MMOL/L Chloride Level 95 L 98-107 MMOL/L Carbon Dioxide Level < 5 *L 21-32 MMOL/L Anion Gap 36 H 5-14 MMOL/L Blood Urea Nitrogen 89 H 7-18 MG/DL Creatinine 5.69 H 0.60-1.30 MG/DL Estimat Glomerular Filtration Rate 8 BUN/Creatinine Ratio 16 Glucose Level 81 70-105 MG/DL Lactic Acid Level 15.43 *H 0.50-2.00 MMOL/L Calcium Level 10.6 H 8.5-10.1 MG/DL Troponin I 0.044 H <0.028 NG/ML My Orders Orders - CHASTITY GRAY PA Albuterol Pre-Mix Nebs (Rt) (Proventil (07/28/21 16:45) Svn Small Volume Nebulizer (07/28/21 16:31) Covid 19 Inhouse Test (07/28/21 16:31) Influenza A And B By Pcr (07/28/21 16:31) Rapid Strep A Screen (07/28/21 16:31) Cbc With Automated Diff (07/28/21 16:33) Magnesium (07/28/21 16:33) Chest 1 View, Ap/Pa Only (07/28/21 16:33) Ekg Tracing (07/28/21 16:33) Comprehensive Metabolic Panel (07/28/21 16:33) Myoglobin Serum (07/28/21 16:33) Protime With Inr (07/28/21 16:33) Partial Thromboplastin Time (07/28/21 16:33) O2 (07/28/21 16:33) Monitor-Rhythm Ecg Trace Only (07/28/21 16:33) Ed Iv/Invasive Line Start (07/28/21 16:33) Bnp [place] (07/28/21 16:33) Troponin I [place] (07/28/21 16:33) Arterial Blood Gas (07/28/21 16:44) Arterial Blood Draw - Obtain (07/28/21 16:44) Manual Differential (07/28/21 16:50) Ua Culture If Indicated (07/28/21 17:03) Blood Culture (07/28/21 17:03) Lactic Acid Analyzer (07/28/21 17:03) Ceftriaxone 1 Gm Pre-Mix (Rocephin 1 Gm (07/28/21 17:21) Calcium Chloride 10% Injection (Calcium (07/28/21 17:30) Insulin (Regular) Human (Novolin R (Per (07/28/21 17:30) D50w (Emergency) Syringe (Dextrose 50% 5 (07/28/21 17:30) Sodium Bicarbonate 8.4% Syr (Sodium Bica (07/28/21 17:30) Furosemide Injection (Lasix Injection) (07/28/21 17:30) Sodium Polystyrene Sulfonate (Kayexalate (07/28/21 17:30) Albuterol Pre-Mix Nebs (Rt) (Proventil (07/28/21 17:30) Svn Small Volume Nebulizer (07/28/21 17:28) Sodium Bicarbonate 8.4% Vial (Sodium Bic (07/28/21 18:08) Sodium Bicarbonate 8.4% Syr (Sodium Bica (07/28/21 18:30) Sodium Bicarbonate 8.4% Syr (Sodium Bica (07/28/21 18:30) Water For Injection... W/Sodium Bicarbon (07/28/21 18:45) Sodium Bicarbonate 8.4% Vial (Sodium Bic (07/28/21 18:36) Sodium Bicarbonate 8.4% Syr (Sodium Bica (07/28/21 18:45) Basic Metabolic Panel (07/28/21 19:12) Troponin I [place] (07/28/21 19:17) Arterial Blood Gas (07/28/21 19:25) Sodium Bicarbonate 8.4% Syr (Sodium Bica (07/28/21 20:45) Sodium Bicarbonate 8.4% Syr (Sodium Bica (07/28/21 20:45) Insulin (Regular) Human (Novolin R (Per (07/28/21 20:45) D50w (Emergency) Syringe (Dextrose 50% 5 (07/28/21 20:45) Sodium Bicarbonate 8.4% Vial (Sodium Bic (07/28/21 20:37) Insulin (Regular) Human (Novolin R (Per (07/28/21 20:39) D50w (Emergency) Syringe (Dextrose 50% 5 (07/28/21 20:40) Medications Given in ED Current Medications Medications Dose Ordered Sig/Natalie Route Start Time Stop Time Status Last Admin Dose Admin Albuterol Sulfate 2.5 mg ONCE ONCE INH 07/28/21 16:45 07/28/21 16:46 DC 07/28/21 16:48 2.5 MG Albuterol Sulfate 20 mg ONCE ONCE INH 07/28/21 17:30 07/28/21 17:31 DC 07/28/21 18:03 20 MG Calcium Chloride 1 gm ONCE ONCE IV 07/28/21 17:30 07/28/21 17:31 DC 07/28/21 17:46 1 GM Dextrose 50 ml ONCE ONCE IV 07/28/21 17:30 07/28/21 17:31 DC 07/28/21 17:53 50 ML Dextrose 50 ml ONCE ONCE IV 07/28/21 20:45 07/28/21 20:53 DC 07/28/21 20:45 50 ML Furosemide 40 mg ONCE ONCE IV 07/28/21 17:30 07/28/21 17:31 DC 07/28/21 18:15 40 MG Insulin Human Regular 10 unit ONCE ONCE IV 07/28/21 17:30 07/28/21 17:31 DC 07/28/21 17:52 10 UNIT Insulin Human Regular 10 unit ONCE ONCE IV 07/28/21 20:45 07/28/21 20:53 DC 07/28/21 20:43 10 UNIT Sodium Bicarbonate 150 meq/Sterile Water 1,150 ml @ 150 mls/hr [id number] ONCE IV 07/28/21 18:45 07/28/21 20:53 DC 07/28/21 18:46 200 MLS/HR Sodium Polystyrene Sulfonate 30 gm ONCE ONCE CO 07/28/21 17:30 07/28/21 17:31 DC 07/28/21 19:10 30 GM Sodium Bicarbonate 50 meq ONCE ONCE IV 07/28/21 17:30 07/28/21 17:31 DC 07/28/21 18:21 50 MEQ Sodium Bicarbonate 50 meq STK-MED ONCE .ROUTE 07/28/21 20:37 07/28/21 20:40 DC 07/28/21 20:42 50 MEQ Sodium Bicarbonate 100 meq ONCE ONCE IV 07/28/21 18:45 07/28/21 18:46 DC 07/28/21 18:42 100 MEQ Sodium Bicarbonate 100 meq ONCE ONCE IV 07/28/21 20:45 07/28/21 20:53 DC 07/28/21 20:45 100 MEQ Vital Signs/I&O 07/28/21 07/28/21 07/28/21 07/28/21 16:21 16:48 18:03 20:54 Temp 37.3 36.6 Pulse 93 87 Resp 24 20 B/P (MAP) 130/47 (74) 101/56 Pulse Ox 92 97 95 99 O2 Delivery Room Air Room Air Nasal Cannula Room Air O2 Flow Rate 2.00 Capillary Refill : Less Than 3 Seconds Blood Pressure Mean: 74 Critical Care Note Critical Care Start Time: 16:00 Stop Time: 17:30 Total Time (minutes) 1:30 hours Hyperkalemia with cardiac arrhythmia needing bicarb drip Departure Impression Primary Impression: Hyperkalemia Additional Impressions: Acute kidney failure Acidosis Disposition: XFER SHT-TRM HOSP Condition: Critical Transfer Transfer Reason: Exceeds level of care Time Spoke to Accepting Phy: 16:30 Transfer Progress Notes Patient was accepted to Dr. Fredis Douglas in the ICU. Patient was discussed with nephrology at [facility] Dr. Rangel who agrees with transfer. Likely will need dialysis. Patient with decreased output over the past 24 hours. Increased lethargy and increased work of breathing about 1 hour before EMS showed up. On arrival patient was tachypnea and mild distress. Patient oxygen level above 95% on room air. She refused wearing oxygen. Patient initially was given albuterol treatment. After receiving patient previous history she has no history of kidney failure, coronary artery disease, CHF, COPD. Patient with arrhythmia. Initial EKG showed diffuse ischemic changes. Initial troponin below 0.028. She has no chest pain but feels mild short of breath. Widening of the QRS, loss of p waves with T wave inversions, hyperacute T waves, st depression and elevation. concerning for more electrolyte abnormality with cardiac instability. Patient initial troponin was less than 0.028. Patient was afebrile. Tachypneic at 28 RRs. Blood cultures pending. Lactic acid of 12. Patient Was given Rocephin. I Was not able to obtain urine sample as she had no urine output out of her Dueñas catheter. Chest x-ray negative for pneumonia, pneumothorax. Patient initial potassium of 9.7. Patient was a difficult IV with limited access. I Was able to start 2 IV sites on the chest. Refused EJ. Patient maintaining blood pressure near 100 with a map over 65. Creatinine of 5.69, BUN of 89. Sodium 136. Chloride 95. Patient initial ABG had a pH of 7. Hyperkalemia treatment albuterol 20 mg, Lasix 40 mg, 10 units of insulin with D50 amp, Kayexalate 30 gm and 3 amp bicarb, bicarb drip patient had no significant improvement. 7.06 a pH with a PCO2 of 17, Bicarb of 5. Potassium did improve to 7.4. Discussed patient with nephrology recommended a second round of 3 amps of sodium bicarb secondary to the low bicarb and continue acidosis. She was also given another 10 units of insulin and an amp of D50. She had worsening lactic acid to 15 after receiving 2 units of fluid NS, and treatment for acidosis. Concerning as patient mouth is dry. Still had limited output. No abdominal pain. Breathing improved significantly. Improvement of EKG which showed right bundle branch block with sinus arrhythmia. Heart rate decreased to 89 bpm. She states she was feeling much better without any chest pain or shortness of breath but continued to be acidotic. May need dialysis. Patient will be transferred to [facility] ICU. Transfer Time: 16:30 Transfer Facility: [facility] Method of Transfer: EMS Departure-Patient Inst. Referrals: OSCAR TALAVERA (PCP/Family) Primary Care Physician CHASTITY GRAY Jul 28, 2021 16:36
[2021-07-28] MEDS ORDERED: RT-ALBUTEROL SULF 2.5 MG/3 ML PRE-MIX VIAL INH ONE ×2 (16:45→17:30)
[2021-07-28 16:52] LABS: ABG OXYGEN SATURATION 94 % (94-100); ABG PCO2 21 MMHG (35-45); ABG PO2 101 MMHG (79-93)
[2021-07-28 16:57] LABS: ABG TCO2 5.6 MMOL/L (21.0-31.0); ALLENS TEST POS; INSPIRED O2 ROOM AIR; VENTILATOR NO
[2021-07-28 16:58] LABS: PATIENT TEMP 37.3
[2021-07-28 16:59] LABS: BASOPHILS # (AUTO) 0.1 10^3/uL (0.0-0.1); BASOPHILS % (AUTO) 1 % (0-10); EOSINOPHILS % (AUTO) 0 % (0-10); HEMATOCRIT 37 % (35-52); HEMOGLOBIN 10.6 g/dL (11.5-16.0); LYMPHOCYTES # (AUTO) 1.6 10^3/uL (1.0-4.0); LYMPHOCYTES % (AUTO) 8 % (12-44); MEAN CORPUSCULAR HEMOGLOBIN 30 pg (25-34); MEAN CORPUSCULAR HGB CONC 29 g/dL (32-36); MEAN CORPUSCULAR VOLUME 104 fL (80-99); MEAN PLATELET VOLUME 10.8 fL (9.0-12.2); MONOCYTES # (AUTO) 0.7 10^3/uL (0.0-1.0); MONOCYTES % (AUTO) 4 % (0-12); NEUTROPHILS # (AUTO) 16.6 10^3/uL (1.8-7.8); NEUTROPHILS % (AUTO) 81 % (42-75); PLATELET COUNT 588 10^3/uL (130-400); WHITE BLOOD COUNT 20.5 10^3/uL (4.3-11.0)
--- NOTE | 2021-07-28 17:11 | Diagnostic Imaging Report ---
INDICATION: Oliguria and pharyngitis with chest pain AP view of the chest is obtained. No previous studies available at this time for comparison. Overall heart size is within normal limits. Pulmonary vascularity is at the upper limits of normal. There is no pneumothorax or consolidation. No definite pleural fluid is seen. There are advanced degenerative findings in both shoulder girdles with separation at the left acromioclavicular joint. IMPRESSION: Borderline pulmonary venous congestion without overt edema or other obvious acute abnormality in the chest. Dictated by: Dictated on workstation # [id number]
[2021-07-28 17:13] LABS: INR 1.3 (0.8-1.4); PROTHROMBIN TIME PATIENT 16.2 SEC (12.2-14.7)
[2021-07-28] MEDS ORDERED: cefTRIAXone 1 GM PRE-MIX 50 ML IV STA (17:21)
[2021-07-28 17:22] LABS: ALBUMIN 3.7 GM/DL (3.2-4.5)
[2021-07-28 17:25] LABS: BAND NEUTROPHILS 1 %; EOSINOPHILS % (MANUAL) 1 %; LYMPHOCYTES % (MANUAL) 12 %; MICROCYTOSIS SLIGHT; MONOCYTES % (MANUAL) 4 %; NEUTROPHILS % (MANUAL) 82 %; POLYCHROMASIA SLIGHT; TOTAL PROTEIN 6.9 GM/DL (6.4-8.2)
[2021-07-28 17:26] LABS: BILIRUBIN,TOTAL 0.2 MG/DL (0.1-1.0)
[2021-07-28 17:28] LABS: CREATININE SERUM 5.85 MG/DL (0.60-1.30); POTASSIUM 9.7 MMOL/L (3.6-5.0)
[2021-07-28] MEDS ORDERED: FUROSEMIDE 40 MG/4 ML INJ (LASIX) IV ONE (17:30)
[2021-07-28] MEDS ORDERED: SODIUM BICARB 8.4% 50 MEQ/50 ML (ABBOTT) SYR IV ONE ×6 (17:30→20:45)
[2021-07-28] MEDS ORDERED: DEXTROSE 50% 50 ML (IMS) SYR IV ONE ×2 (17:30→20:45)
[2021-07-28] MEDS ORDERED: CALCIUM CHLORIDE 1 GM/10 ML (IMS) SYR IV ONE (17:30)
[2021-07-28] MEDS ORDERED: inSUlin (REGULAR) HUMAN 1 UNIT/0.01 ML (CHARGE PER UNIT) IV ONE ×2 (17:30→20:45)
[2021-07-28] MEDS ORDERED: SOD POLYSTERENE 15 GM/60 ML (KAYEXALATE) UNIT DOSE PR ONE (17:30)
[2021-07-28 17:31] LABS: MAGNESIUM 2.2 MG/DL (1.6-2.4)
[2021-07-28] MEDS ORDERED: SODIUM BICARB 8.4% 50 MEQ/50 ML VIAL ONE ×3 (18:08→20:37)
[2021-07-28] MEDS ORDERED: SODIUM BICARBONATE 8.4% VIAL 150 MEQ in WATER FOR INJECTION, STERILE 1,000 ML IV ONE (18:45)
[2021-07-28 19:29] LABS: ABG OXYGEN SATURATION 97 % (94-100); ABG PO2 110 MMHG (79-93)
[2021-07-28 19:31] LABS: ABG PCO2 17 MMHG (35-45); ABG PH 7.06 (7.37-7.43)
[2021-07-28 19:32] LABS: ABG TCO2 5.2 MMOL/L (21.0-31.0); ALLENS TEST POS; INSPIRED O2 ROOM AIR; PATIENT TEMP 36.2; VENTILATOR NO
[2021-07-28 20:19] LABS: BUN/CREATININE RATIO 16; CALCIUM 10.6 MG/DL (8.5-10.1); CHLORIDE 95 MMOL/L (98-107); CREATININE SERUM 5.69 MG/DL (0.60-1.30); GFR ESTIMATED 8; GLUCOSE 81 MG/DL (70-105); SODIUM 136 MMOL/L (135-145)
[2021-07-28 20:28] LABS: CARBON DIOXIDE < 5 MMOL/L (21-32); POTASSIUM 7.4 MMOL/L (3.6-5.0)
[2021-07-28] MEDS ORDERED: inSUlin (REGULAR) HUMAN 1 UNIT/0.01 ML (CHARGE PER UNIT) ONE (20:39)
[2021-07-28] MEDS ORDERED: DEXTROSE 50% 50 ML (IMS) SYR ONE (20:40)
[2021-07-28 20:54] VITALS: BP 101/56
== END 2021-07-28 20:53 | disposition short-term general hospital (02) ==
LOC: EDUNIT# 16:21 → ER 16:22
DX: N17.9 Acute kidney failure, unspecified (principal); E87.5 Hyperkalemia; E87.2 Acidosis; Z96.0 Presence of urogenital implants; Z20.822 Contact with and (suspected) exposure to COVID-19
CPT/HCPCS: 36415; 36600; 71045; 80048; 80053; 82805; 83605; 83735; 83874; 83880; 84484; 85007; 85027; 85610; 85730; 87040; 87430; 87636; 93005; 93041; 94640; 94644; 99291

== ENCOUNTER 2021-09-27 18:39 | Emergency (ER) | payer MEDICAID ==
[~2021-09-27] VITALS: Ht 160 cm; Wt 124.0 kg
--- NOTE | 2021-09-27 18:55 | ED General ---
General Chief Complaint: Fever-Adult/Adol Stated Complaint: FEVER History of Present Illness Date Seen by Provider: September 27, 2021 Time Seen by Provider: 18:46 Initial Comments 61-year-old female with PMH of type 2 diabetes mellitus with diabetic nephrop athy/ peripheral autonomic neuropathy/hypertension/mild intellectual disability/GERD, is brought in by EMS from medical [place] with complaints of tachycardia and fever at the half-way. Patient complains of left upper quadrant and left lower quadrant pain which began yesterday, as well as right flank pain. Patient has not had anything to eat today, and she has only had water and juice all day due to abdominal pain. Her last meal was yesterday. Denies chest pain, shortness of breath, cough, diarrhea, constipation, dysuria, headache. No known sick contacts. Allergies and Home Medications Allergies Coded Allergies: Penicillins (Unverified Allergy, Mild, 10/03/08) Patient Home Medication List Home Medication List Reviewed: Yes Bupropion Hcl (Wellbutrin Xl) 300 Mg Tab.sr.24h, (Reported) Entered as Reported by: HALINA HANEY on 10/03/08 1117 Bupropion Hcl (Wellbutrin Sr) 150 Mg Tablet, (Reported) Entered as Reported by: MAURICIO GRIFFITH on 06/12/092030 Calcium Carbonate/Vitamin D3 (Os-Neil 500+D Caplet) 1 Each Tablet, (Reported) Entered as Reported by: HALINA HANEY on 10/03/08 111 Loratadine (Claritin) 10 Mg Tab, (Reported) Entered as Reported by: HALINA HANEY on 10/03/08 111 Sulfamethoxazole/Trimethoprim (Bactrim Ds Tablet) 1 Each Tablet, 1 EACH PO BID Prescribed by: ABIEL SINGER on 12/16/19 0140 Review of Systems Review of Systems Constitutional: fever EENTM: no symptoms reported Respiratory: no symptoms reported Cardiovascular: no symptoms reported Gastrointestinal: LUQ, LLQ, abdominal pain (LLQ) Genitourinary: no symptoms reported Musculoskeletal: no symptoms reported Skin: no symptoms reported Psychiatric/Neurological: No Symptoms Reported Hematologic/Lymphatic: No Symptoms Reported Immunological/Allergic: no symptoms reported Past Meyhmaa-Oiwotr-Rarcew Hx Seasonal Allergies Seasonal Allergies: No Past Medical History Surgeries: Yes (RIGHT 5TH TOE AMPUTATION) Amputation, Orthopedic Respiratory: No Cardiac: Yes Hypertension Neurological: No Genitourinary: No Musculoskeletal: Yes (FALLS; POOR MOBILITY/MOSTLY WHEELCHAIR BOUND) Arthritis, Chronic Back Pain Endocrine: Yes Diabetes, Non-Insulin dep HEENT: No Cancer: No Psychosocial: Yes Personality Disorder, Depression Integumentary: No Blood Disorders: No Physical Exam Vital Signs Vital Signs - First Documented 09/27/21 18:40 Temp 39.6 Pulse 118 Resp 22 B/P (MAP) 116/73 (87) Pulse Ox 87 O2 Delivery Room Air Capillary Refill : Height, Weight, BMI Height: '" Weight: lbs. oz. kg; 35.00 BMI Method:Estimated General Appearance: Mild Distress HEENT: PERRL/EOMI Neck: Full Range of Motion Respiratory: Chest Non Tender, Lungs Clear, Normal Breath Sounds, No Respiratory Distress Cardiovascular: Tachycardia Gastrointestinal: Normal Bowel Sounds, No Organomegaly, No Pulsatile Mass, Soft, Tenderness (right CVA tenderness and LUQ and LLQ tenderness) Back: CVA Tenderness (R) Neurologic/Psychiatric: Alert, Oriented x3, No Motor/Sensory Deficits Skin: Normal Color Lymphatic: No Adenopathy Focused Exam Lactate Level 09/27/21 18:58: Lactic Acid Level 1.32 Lactic Acid Level Laboratory Tests Test 09/27/21 18:58 Lactic Acid Level 1.32 MMOL/L (0.50-2.00) Procedures/Interventions Suture Size: 4-0 Progress/Results/Core Measures Suspected Sepsis SIRS Temperature: Pulse: Respiratory Rate: Laboratory Tests 09/27/21 18:58: White Blood Count 19.8H Blood Pressure / Mean: 09/27/21 18:58: Lactic Acid Level 1.32 Laboratory Tests 09/27/21 18:58: Creatinine 1.09, Platelet Count 468H, Total Bilirubin 0.6 Results/Orders Lab Results Laboratory Tests Test 09/27/21 18:58 09/27/21 19:12 Range/Units White Blood Count 19.8 H 4.3-11.0 10^3/uL Red Blood Count 3.47 L 3.80-5.11 10^6/uL Hemoglobin 10.2 L 11.5-16.0 g/dL Hematocrit 33 L 35-52 % Mean Corpuscular Volume 94 80-99 fL Mean Corpuscular Hemoglobin 29 25-34 pg Mean Corpuscular Hemoglobin Concent 31 L 32-36 g/dL Red Cell Distribution Width 14.6 H 10.0-14.5 % Platelet Count 468 H 130-400 10^3/uL Mean Platelet Volume 10.7 9.0-12.2 fL Immature Granulocyte % (Auto) 1 % Neutrophils (%) (Auto) 92 H 42-75 % Lymphocytes (%) (Auto) 4 L 12-44 % Monocytes (%) (Auto) 4 0-12 % Eosinophils (%) (Auto) 0 0-10 % Basophils (%) (Auto) 0 0-10 % Neutrophils # (Auto) 18.1 H 1.8-7.8 10^3/uL Lymphocytes # (Auto) 0.7 L 1.0-4.0 10^3/uL Monocytes # (Auto) 0.8 0.0-1.0 10^3/uL Eosinophils # (Auto) 0.0 0.0-0.3 10^3/uL Basophils # (Auto) 0.1 0.0-0.1 10^3/uL Immature Granulocyte # (Auto) 0.1 0.0-0.1 10^3/uL Neutrophils % (Manual) 86 % Lymphocytes % (Manual) 5 % Monocytes % (Manual) 3 % Band Neutrophils 6 % Toxic Granulation 1+ Blood Morphology Comment NORMAL Sodium Level 133 L 135-145 MMOL/L Potassium Level 3.4 L 3.6-5.0 MMOL/L Chloride Level 88 L 98-107 MMOL/L Carbon Dioxide Level 29 21-32 MMOL/L Anion Gap 16 H 5-14 MMOL/L Blood Urea Nitrogen 19 H 7-18 MG/DL Creatinine 1.09 0.60-1.30 MG/DL Estimat Glomerular Filtration Rate 59 BUN/Creatinine Ratio 17 Glucose Level 238 H 70-105 MG/DL Lactic Acid Level 1.32 0.50-2.00 MMOL/L Calcium Level 8.7 8.5-10.1 MG/DL Corrected Calcium 9.1 8.5-10.1 MG/DL Total Bilirubin 0.6 0.1-1.0 MG/DL Aspartate Amino Transf (AST/SGOT) 19 5-34 U/L Alanine Aminotransferase (ALT/SGPT) 12 0-55 U/L Alkaline Phosphatase 127 40-136 U/L Total Protein 7.7 6.4-8.2 GM/DL Albumin 3.5 3.2-4.5 GM/DL Lipase 11 8-78 U/L Urine Color YELLOW Urine Clarity SL CLOUDY Urine pH 6.0 5-9 Urine Specific [place] 1.010 L 1.016-1.022 Urine Protein NEGATIVE NEGATIVE Urine Glucose (UA) NEGATIVE NEGATIVE Urine Ketones NEGATIVE NEGATIVE Urine Nitrite NEGATIVE NEGATIVE Urine Bilirubin NEGATIVE NEGATIVE Urine Urobilinogen 0.2 < = 1.0 MG/DL Urine Leukocyte Esterase 3+ H NEGATIVE Urine RBC (Auto) 1+ H NEGATIVE Urine RBC 2-5 H /HPF Urine WBC 25-50 H /HPF Urine Squamous Epithelial Cells 2-5 /HPF Urine Crystals NONE /LPF Urine Bacteria LARGE H /HPF Urine Casts PRESENT /LPF Urine Hyaline Casts 0-2 H /LPF Urine Mucus SMALL H /LPF Urine Culture Indicated YES My Orders Orders - AZEEM ZAZUETA MD Comprehensive Metabolic Panel (09/27/21 18:55) Lipase (09/27/21 18:55) Ua Culture If Indicated (09/27/21 18:55) Ed Iv/Invasive Line Start (09/27/21 18:55) Cbc With Automated Diff (09/27/21 18:55) Ct Abdomen/Pelvis W (09/27/21 18:55) Lactic Acid Analyzer (09/27/21 18:55) Blood Culture (09/27/21 18:55) Chest 1 View, Ap/Pa Only (09/27/21 18:59) Ed Iv/Invasive Line Start (09/27/21 19:00) Ns Iv 1000 Ml (Sodium Chloride 0.9%) (09/27/21 19:00) Acetaminophen Tablet/Caplet (Tylenol T (09/27/21 19:10) Manual Differential (09/27/21 18:58) Urine Culture (09/27/21 19:12) Iohexol Injection (Omnipaque 350 Mg/Ml 1 (09/27/21 20:00) Ns (Ivpb) (Sodium Chloride 0.9% Ivpb Bag (09/27/21 20:00) Cefepime Injection (Maxipime Injection) (09/27/21 21:05) Ns Iv 1000 Ml (Sodium Chloride 0.9%) (09/27/21 21:07) Medications Given in ED Current Medications Medications Dose Ordered Sig/Natalie Route Start Time Stop Time Status Last Admin Dose Admin Iohexol 100 ml ONCE ONCE IV 09/27/21 20:00 09/27/21 20:01 DC 09/27/21 20:00 100 ML Sodium Chloride 100 ml ONCE ONCE IV 09/27/21 20:00 09/27/21 20:01 DC 09/27/21 20:00 80 ML Vital Signs/I&O 09/27/21 18:40 Temp 39.6 Pulse 118 Resp 22 B/P (MAP) 116/73 (87) Pulse Ox 87 O2 Delivery Room Air Capillary Refill : Progress Note : Progress Note 1. UROSEPSIS DUE TO RIGHT SIDED NEPHROLITHIASIS: - CT ABD : 19x9mm stone in right renal pelvis - CBC: WBC of 19.8 with a left shift - UA is positive for bacteria, leukocyte Esterase, WBC, and RBC. - Blood cultures sent - Tylenol for fever - Pt was febrile with tachycardia and hypotension, concern for urosepsis due to huge stone - Cefepime 1gm iv STAT - NS bolus x 2L - Lactic acid normal - Will need transfer to [place] for in house Urology. Discussed with Dr Pacheco, urology via transfer nurse, and Dr. Douglas, hospitalist and Accepted for transfer. 2. MILD HYPONATREMIA & MILD HYPOKALEMIA: - s. Na is 133 and s. K+ is 3.3 - NS IVF - Oral potassium 40mEq Diagnostic Imaging Diagonstic Imaging: Xray, CT Plain Films/CT/US/NM/MRI: chest, abdomen Comments [facility] [place], [place] NAME: COREYDRAKE SOW [facility] REC#: [id number] PT STATUS: REG ER : 1960 PHYSICIAN: AZEEM ZAZUETA MD ADMIT DATE: 09/27/21/ER Draft Date of Exam:09/27/21 CT ABDOMEN/PELVIS W CLINICAL INDICATION: Patient with left upper quadrant and left lower quadrant pain. Patient has fever. Patient has history of spleen removal. No history of cancer. EXAM: Axial CT scan of the abdomen and pelvis performed with 100 mL of Omnipaque 350 IV contrast. Sagittal and coronal reformatted images are created. Auto Exposure Controls were utilized during the CT exam to meet ALARA standards for radiation dose reduction. COMPARISON: None. FINDINGS: There is mild bibasilar atelectasis. Old fracture deformities involving the left pubic bone and inferior left pubic ramus. There is chronic bilateral L5 spondylolysis with grade 2-3 anterolisthesis of L5 on S1. There is severe loss of disk space height and endplate irregularity at the L5-S1 level. There are degenerative spurs involving the visualized lower thoracic spine and lumbar spine. Minimal pericardial fluid noted. The liver, spleen, pancreas, and gallbladder are unremarkable. There is no intrahepatic or extrahepatic ductal dilation. Spleen is slightly truncated which may be from postop changes or splenule regeneration. Adrenal glands are unremarkable. There are small bilateral renal cysts. The largest one measures roughly 10 mm in the inferior anterior right kidney. There is a 19 mm x 9 mm stone within the right renal pelvis. There is mild fat stranding adjacent to the right renal pelvis and proximal right ureter. There is wall enhancement and slight thickening of the right renal pelvis and right ureter. There is no other concern for stone in the ureter. Left kidney shows no stone or hydronephrosis. There is no stone in left ureter. There is a Dueñas catheter within the bladder. Bladder is decompressed. There is large amount of stool in the rectum. There is a moderate amount of stool involving the transverse colon and ascending colon. The appendix is unremarkable. There is no intra-abdominal free air or free fluid. There is a roughly 2.0 cm x 3.2 cm cystic structure involving the right ovary. Left ovary is unremarkable. Uterus is unremarkable. There is no intra-abdominal free air or free fluid. There is no lymphadenopathy. There is a moderate sized hiatal hernia. Stomach is decompressed. There is no intestinal obstruction. The extra-abdominal and extrapelvic soft tissue structures are unremarkable. IMPRESSION: 1: There is a 19 mm stone within the right renal pelvis. There is mild enhancement or wall thickening involving the right ureter and proximal right renal pelvis which may be related to ureteritis. There is mild fat stranding adjacent to the right renal pelvis and proximal ureter. Urinalysis may help better evaluate versus irritation from the stone. 2: There is no other acute abnormality seen involving this exam. 3: There is large amount of stool in the rectum. There is also moderate amount of stool seen involving the transverse colon and right colon. These findings may be seen with constipation. 4: There is a 3.2 cm cystic structure involving the right ovary. Nonemergent pelvic ultrasound suggested for further evaluation. Dictated on workstation # [id number] Dict: 09/27/212006 Trans: 09/27/212017 ROBIN [id number] Interpreted by: DELMA MURCIA MD Electronically signed by: [facility] [place] [place] NAME: DRAKE FREEMAN [facility] REC#: [id number] PT STATUS: REG ER : 1960 PHYSICIAN: AZEEM ZAZUETA MD ADMIT DATE: 09/27/21/ER Draft Date of Exam:09/27/21 CHEST 1 VIEW, AP/PA ONLY Clinical Indication: Patient with abdominal pain and fever. EXAM: Portable chest x-ray upright view. COMPARISON: Chest x-ray dated 07/28/2021. FINDINGS: Lungs/pleura: There is slight improved aeration of both lungs compared to the prior study. There is discoid atelectasis or scarring left midlung field. Suspected mild bibasilar atelectasis. There is no definite lung infiltrate. There is no pneumothorax. There is no pleural effusion. Mediastinum: Unremarkable. Pulmonary vasculature: Unremarkable. Heart: Unremarkable. Bones/extrathoracic soft tissue: There are degenerative spurs involving the thoracic spine. IMPRESSION: 1: There is mild bibasilar and left midlung field atelectasis. There is no definite lung infiltrate. Dictated on workstation # [id number] Dict: 09/27/212005 Trans: 09/27/212007 ROBIN [id number] Interpreted by: DELMA MURCIA MD Electronically signed by: Departure Communication (Admissions) Time/Spoke to Admitting Phy: 21:[address] Douglas and accepted for transfer Time/Spoke to Consulting Phy: 21:16 Discussed with Urology , Dr Pacheco via transfer nurse. Deferred to hospitalist for transfer decision Impression Primary Impression: Right nephrolithiasis Additional Impressions: UTI (urinary tract infection) Qualified Codes: N30.00 - Acute cystitis without hematuria Sepsis Qualified Codes: A41.9 - Sepsis, unspecified organism Hypokalemia Hyponatremia Constipation Qualified Codes: K59.00 - Constipation, unspecified Disposition: XFER SHT-TRM HOSP Condition: Stable Admissions Decision to Admit Reason: Admit from ER (General) Decision to Admit/Date: September 27, 2021 Time/Decision to Admit Time: 21:00 Transfer Transfer Reason: Exceeds level of care Time Spoke to Accepting Phy: 21:16 Transfer Progress Notes Needs to be evaluated by Urologist for kidney stone causing urosepsis Transfer Facility: [facility] Method of Transfer: EMS Departure-Patient Inst. Referrals: [facility] (PCP/Family) Primary Care Physician AZEEM ZAZUETA MD September 27, 2021 18:55
[2021-09-27] MEDS ORDERED: NS IV 1000 ML 1,000 ML IV SCH (19:00)
[2021-09-27] MEDS ORDERED: ACETAMINOPHEN 650 MG SUPP (TYLENOL) PR ONE (19:00)
[2021-09-27 19:10] LABS: BASOPHILS # (AUTO) 0.1 10^3/uL (0.0-0.1); BASOPHILS % (AUTO) 0 % (0-10); EOSINOPHILS % (AUTO) 0 % (0-10); HEMATOCRIT 33 % (35-52); HEMOGLOBIN 10.2 g/dL (11.5-16.0); LYMPHOCYTES # (AUTO) 0.7 10^3/uL (1.0-4.0); LYMPHOCYTES % (AUTO) 4 % (12-44); MEAN CORPUSCULAR HEMOGLOBIN 29 pg (25-34); MEAN CORPUSCULAR HGB CONC 31 g/dL (32-36); MEAN CORPUSCULAR VOLUME 94 fL (80-99); MEAN PLATELET VOLUME 10.7 fL (9.0-12.2); MONOCYTES # (AUTO) 0.8 10^3/uL (0.0-1.0); MONOCYTES % (AUTO) 4 % (0-12); NEUTROPHILS # (AUTO) 18.1 10^3/uL (1.8-7.8); NEUTROPHILS % (AUTO) 92 % (42-75); PLATELET COUNT 468 10^3/uL (130-400); WHITE BLOOD COUNT 19.8 10^3/uL (4.3-11.0)
[2021-09-27] MEDS ORDERED: ACETAMINOPHEN 325 MG TABLET PO STA (19:10)
[2021-09-27 19:17] LABS: BILIRUBIN,URINE NEGATIVE (NEGATIVE); CLARITY,URINE SL CLOUDY; COLOR,URINE YELLOW; GLUCOSE, URINE (UA) NEGATIVE (NEGATIVE); KETONES,URINE NEGATIVE (NEGATIVE); LEUKOCYTE ESTERASE ,URINE 3+ (NEGATIVE); NITRITE,URINE NEGATIVE (NEGATIVE); PROTEIN,URINE NEGATIVE (NEGATIVE)
[2021-09-27 19:25] LABS: BACTERIA,URINE LARGE /HPF; HYALINE CASTS, URINE 0-2 /LPF; WBC,URINE 25-50 /HPF
[2021-09-27 19:26] LABS: ALBUMIN 3.5 GM/DL (3.2-4.5)
[2021-09-27 19:27] LABS: CALCIUM 8.7 MG/DL (8.5-10.1)
[2021-09-27 19:29] LABS: TOTAL PROTEIN 7.7 GM/DL (6.4-8.2)
[2021-09-27 19:30] LABS: BILIRUBIN,TOTAL 0.6 MG/DL (0.1-1.0)
[2021-09-27 19:32] LABS: CREATININE SERUM 1.09 MG/DL (0.60-1.30)
[2021-09-27 19:35] LABS: BAND NEUTROPHILS 6 %; LYMPHOCYTES % (MANUAL) 5 %; MONOCYTES % (MANUAL) 3 %; NEUTROPHILS % (MANUAL) 86 %; POTASSIUM 3.4 MMOL/L (3.6-5.0); RBC MORPH NORMAL; TOXIC GRANULATION/VACUOLAZATIO 1+
[2021-09-27] MEDS ORDERED: NS 100 ML (IVPB) BAG IV ONE (20:00)
[2021-09-27] MEDS ORDERED: IOHEXOL 350 MG/ML 100 ML (OMNIPAQUE 350) VIAL IV ONE (20:00)
--- NOTE | 2021-09-27 20:09 | Diagnostic Imaging Report ---
Clinical Indication: Patient with abdominal pain and fever. EXAM: Portable chest x-ray upright view. COMPARISON: Chest x-ray dated 07/28/2021. FINDINGS: Lungs/pleura: There is slight improved aeration of both lungs compared to the prior study. There is discoid atelectasis or scarring left midlung field. Suspected mild bibasilar atelectasis. There is no definite lung infiltrate. There is no pneumothorax. There is no pleural effusion. Mediastinum: Unremarkable. Pulmonary vasculature: Unremarkable. Heart: Unremarkable. Bones/extrathoracic soft tissue: There are degenerative spurs involving the thoracic spine. IMPRESSION: 1: There is mild bibasilar and left midlung field atelectasis. There is no definite lung infiltrate. Dictated by: Dictated on workstation # [id number]
--- NOTE | 2021-09-27 20:18 | Diagnostic Imaging Report ---
CLINICAL INDICATION: Patient with left upper quadrant and left lower quadrant pain. Patient has fever. Patient has history of spleen removal. No history of cancer. EXAM: Axial CT scan of the abdomen and pelvis performed with 100 mL of Omnipaque 350 IV contrast. Sagittal and coronal reformatted images are created. Auto Exposure Controls were utilized during the CT exam to meet ALARA standards for radiation dose reduction. COMPARISON: None. FINDINGS: There is mild bibasilar atelectasis. Old fracture deformities involving the left pubic bone and inferior left pubic ramus. There is chronic bilateral L5 spondylolysis with grade 2-3 anterolisthesis of L5 on S1. There is severe loss of disk space height and endplate irregularity at the L5-S1 level. There are degenerative spurs involving the visualized lower thoracic spine and lumbar spine. Minimal pericardial fluid noted. The liver, spleen, pancreas, and gallbladder are unremarkable. There is no intrahepatic or extrahepatic ductal dilation. Spleen is slightly truncated which may be from postop changes or splenule regeneration. Adrenal glands are unremarkable. There are small bilateral renal cysts. The largest one measures roughly 10 mm in the inferior anterior right kidney. There is a 19 mm x 9 mm stone within the right renal pelvis. There is mild fat stranding adjacent to the right renal pelvis and proximal right ureter. There is wall enhancement and slight thickening of the right renal pelvis and right ureter. There is no other concern for stone in the ureter. Left kidney shows no stone or hydronephrosis. There is no stone in left ureter. There is a Dueñas catheter within the bladder. Bladder is decompressed. There is large amount of stool in the rectum. There is a moderate amount of stool involving the transverse colon and ascending colon. The appendix is unremarkable. There is no intra-abdominal free air or free fluid. There is a roughly 2.0 cm x 3.2 cm cystic structure involving the right ovary. Left ovary is unremarkable. Uterus is unremarkable. There is no intra-abdominal free air or free fluid. There is no lymphadenopathy. There is a moderate sized hiatal hernia. Stomach is decompressed. There is no intestinal obstruction. The extra-abdominal and extrapelvic soft tissue structures are unremarkable. IMPRESSION: 1: There is a 19 mm stone within the right renal pelvis. There is mild enhancement or wall thickening involving the right ureter and proximal right renal pelvis which may be related to ureteritis. There is mild fat stranding adjacent to the right renal pelvis and proximal ureter. Urinalysis may help better evaluate versus irritation from the stone. 2: There is no other acute abnormality seen involving this exam. 3: There is large amount of stool in the rectum. There is also moderate amount of stool seen involving the transverse colon and right colon. These findings may be seen with constipation. 4: There is a 3.2 cm cystic structure involving the right ovary. Nonemergent pelvic ultrasound suggested for further evaluation. Dictated by: Dictated on workstation # [id number]
[2021-09-27] MEDS ORDERED: CEFEPIME INJECTION 1,000 MG in NS (IVPB) 50 ML IV STA (21:05)
[2021-09-27] MEDS ORDERED: NS IV 1000 ML 1,000 ML IV STA (21:07)
[2021-09-27] MEDS ORDERED: KCL 20 MEQ TAB (K-DUR) PO ONE (22:00)
[2021-09-27 23:14] VITALS: BP 122/62
== END 2021-09-28 02:08 | disposition short-term general hospital (02) ==
LOC: EDUNIT# 18:39 → ER 18:43
DX: A41.9 Sepsis, unspecified organism (principal); N30.00 Acute cystitis without hematuria; N20.0 Calculus of kidney; E87.6 Hypokalemia; E87.1 Hypo-osmolality and hyponatremia; K59.00 Constipation, unspecified; I95.9 Hypotension, unspecified; E11.43 Type 2 diabetes mellitus with diabetic autonomic (poly)neuropathy; E11.21 Type 2 diabetes mellitus with diabetic nephropathy; Z99.3 Dependence on wheelchair
CPT/HCPCS: 36415; 71045; 74177; 80053; 81000; 83605; 83690; 85007; 85027; 87040; 87077; 87088; 87186